=== PATIENT | female | born 1940 | race Caucasian/White ===

== ENCOUNTER 2018-01-25 15:47 | Observation (INO) ==
--- NOTE | 2018-01-25 16:14 | CT ---
CT brain without contrast Indication: Slurring speech with difficult arousable Comparison: None available Technique: Multiple axial images of the brain were obtained from the skull base to the vertex without administra tion of IV contrast. Findings: Mild generalized cerebral atrophy. No acute intraparenchymal hemorrhage or mass can be identified. No extra-axial fluid collections are seen. No alteration in the attenuation of the brain parenchyma can be identified to suggest acute o r subacute ischemic change. The ventricular system is symmetric and nondilated. The extracranial st ructures are grossly unremarkable. IMPRESSION: 1. No acute intracranial process is identified. Reported By:
--- NOTE | 2018-01-25 17:02 | DR.AMS ---
HPI - Time Seen Time seen: 16:47 - PCP Primary Care Physician: DR. SORIA - Complaint Cheif Complaint Doctors Comments: She noted slurriness of her speech upon awakening this a.m. She cooked and had breakfast. She felt sleepy and went to sleep. A friend called and noted that her speech was off, so therefore she called the pt's daughters who then brought her into the ED. Chief Complaint:: PT'S FAMILY STATES A FRIEND CALLED PT AT 1000 AND STATES THAT SHE WAS VERY SLEEPY, AND WAS SLURING HER WORDS..... PT IS ALERT AND ORIENTED TIMES FOR PT DENIES ANY PAIN ,STEADY GATE AND SHE WAS HAVE GARLED SPEECH , PT IS ABLE TO GIVE A GOOD HX, PT CAN MOVE ALL EXT'S WELL..BR Self Treatment fo Chief Complaint: PT STATES " I JUST GOT UP AND COOKED BREAKFAST AND I GOT SLEEPY AND MY FRIEND MIKY CALLED AND SHE SAID WHATS WRONG AND THEN SHE CALLED MY DAUGHTER ", - Reviewed Nurses Notes Reviewed: Yes - Source History Provided: Patient, Family Member - Mode of Arrival Mode of Arrival: Ambulatory - Timing Onset of Chief Complaint: 01/25/18 PMH - PMH Past Medical History: Yes Past Medical History: Diabetes, Hypertension Past Medical History Comment: DIARRHEA, FOR WEEKS, PT HX AFIB, < HEM, AND PLT Past Surgical History: No - Family History History of Family Medical Conditions: No - Social History Does patient currently use any type of tobacco product: Yes Have you used tobacco products in the last 12 months: Yes Type of Tobacco Use: Cigarettes How many years tobacco product used: 60 Does any household member use tobacco: Yes Alcohol Use: Rarely Do you use any recreational Drugs:: No Lives With: Alone Lives Where: Home - infectious screening In the last 2 months have you had wt loss of >10#?: NO Have you had fever, night sweats or hemotysis?: No Have you traveled outside the country in the last 6 months?: No Isolation: Standard ROS - Review of Systems Constitutional: No Symptoms Reported Eyes: No Symptoms Reported ENTM: No Symptoms Reported Respiratoy: No Symptoms Reported Cardiovascular: No Symptoms Reported Gastrointestinal/Abdominal: No Symptoms Reported Genitourinary: No Symptoms Reported Neurological: Speech Problem Musculoskeletal: No Symptoms Reported Integumentary: No Symptoms Reported Hematologic/Lymphatic: No Symptoms Reported Endocrine: No Symptoms Reported Psychiatric: No Symptoms Reported All Other Systems: Reviewed and Negative PE - General Limitations: Language Barrier General Appearance: Alert - Head Head Exam: Normal Inspection, Other (slight facial assymetry with flatening of the rt. nasolabial fold.) - Eyes Eye exam: Normal Appearance, PERRL, EOMI - ENT ENT Exam: Normal Exam - Neck Neck Exam: Normal Inspection, Full ROM, Trachea Midline - Chest Chest Inspection: Normal Inspection, Symmetric Chest Wall Rise - Respiratory Respiratory Exam: Normal Lung Sounds Bilat - Cardiovascular Cardiovascular Exam: Regular Rate, Normal Rhythm, Normal Heart Sounds, +S1, +S2 - Abdominal Exam Abdominal Exam: Normal Inspection, Normal Bowel Sounds, Soft - Extremities Extremities Exam: Normal Inspection - Back Back Exam: Normal Inspection - Neurological Neurological Exam: Alert, Oriented X3 Patient Oriented To: Person, Place Speech: Other (dysathria) - Psychological Psychiatric Exam: Normal Affect, Normal Mood - Skin Skin Exam: Warm, Dry, Intact, Normal Color - Vitals Vital Signs: Temp Pulse Pulse Resp BP BP Pulse Ox 01/25/18 18:20 71 17 137/63 100 01/25/18 15:49 98.8 F 74 20 127/60 99 ROR - Labs Reviewed Result Diagrams: 01/25/18 17:11 01/25/18 17:11 - Labs Reviewed Laboratory: WBC 6.4 X10^3/uL (3.6-10.0) 01/25/18 17:11 RBC 2.97 X10^6/uL (3.5-5.4) L 01/25/18 17:11 Hgb 10.8 g/dL (12.0-16.0) L 01/25/18 17:11 Hct 31.5 % (36.0-47.0) L 01/25/18 17:11 MCV 106.1 fL (80.0-100.0) H 01/25/18 17:11 MCH 36.2 pg (27.0-34.0) H 01/25/18 17:11 MCHC 34.1 g/dL (33.0-35.0) 01/25/18 17:11 RDW 14.4 % (11.6-16.5) 01/25/18 17:11 Plt Count 113 X10^3/uL (150.0-450.0) L 01/25/18 17:11 Plt Count Comment Adequate (ADEQUATE) 01/25/18 17:11 MPV 7.4 fL (7.4-11.0) 01/25/18 17:11 Neut % (Auto) 57.4 % (42.0-75.0) 01/25/18 17:11 Lymph % (Auto) 35.6 % (21.0-51.0) 01/25/18 17:11 Union % (Auto) 5.5 % (0.0-13.0) 01/25/18 17:11 Eos % (Auto) 0.7 % (0.9-2.9) L 01/25/18 17:11 Baso % (Auto) 0.8 % (0.2-1.0) 01/25/18 17:11 Neut # (Auto) 3.7 x10^3/uL (2.2-4.8) 01/25/18 17:11 Lymph # (Auto) 2.3 X10^3/uL (1.3-2.9) 01/25/18 17:11 Union # (Auto) 0.3 x10^3/uL (0.3-0.8) 01/25/18 17:11 Eos # (Auto) 0.0 x10^3/uL (0.0-0.2) 01/25/18 17:11 Baso # (Auto) 0.1 X10^3/uL (0.0-0.1) 01/25/18 17:11 Absolute Nucleated RBC 0.0 /100WBC 01/25/18 17:11 Plt Morphology Comment Normal (NORMAL) 01/25/18 17:11 RBC Morphology Abnormal (NORMAL) A 01/25/18 17:11 Anisocytosis 1+ A 01/25/18 17:11 Macrocytosis 1+ A 01/25/18 17:11 INR Target Range - 01/25/18 17:11 INR 1.00 (0.8-1.3) 01/25/18 17:11 Sodium 142 mmol/L (136-145) 01/25/18 17:11 Corrected Sodium TNP 01/25/18 17:11 Potassium 3.6 mmol/L (3.5-5.1) 01/25/18 17:11 Chloride 109 mmol/L (98-107) H 01/25/18 17:11 Carbon Dioxide 19.7 mmol/L (21-32) L 01/25/18 17:11 BUN 18 mg/dL (7-18) 01/25/18 17:11 Creatinine 1.37 mg/dL (0.55-1.02) H 01/25/18 17:11 Est GFR (MDRD) Af Amer 48 (>60) L 01/25/18 17:11 Est GFR (MDRD) Non-Af 40 (>60) L 01/25/18 17:11 Glucose 110 mg/dL (65-99) H 01/25/18 17:11 Calcium 9.6 mg/dL (8.5-10.1) 01/25/18 17:11 Corrected Calcium TNP 01/25/18 17:11 Total Bilirubin 0.20 mg/dL (0.2-1.0) 01/25/18 17:11 AST 16 Units/L (15-37) 01/25/18 17:11 ALT 17 Units/L (12-78) 01/25/18 17:11 Alkaline Phosphatase 84 Units/L (46-116) 01/25/18 17:11 Total Protein 7.8 g/dL (6.4-8.2) 01/25/18 17:11 Albumin 3.9 g/dL (3.4-5.0) 01/25/18 17:11 Globulin 3.9 g/dL (2.5-4.5) 01/25/18 17:11 Albumin/Globulin Ratio 1.0 Ratio (1.1-2.1) L 01/25/18 17:11 - Diagnosis Discharge Problem: TIA (transient ischemic attack), HTN (hypertension), Diabetes, A-fib - Discharge Plan Disposition: ADMITTED INPATIENT Condition: Stable - Follow ups/Referrals Follow ups/Referrals: NFD,None [Primary Care Provider] - 3 days - Instructions
[2018-01-25 17:29] LABS: BASOPHILS # (AUTO) 0.1 X10^3/uL (0.0-0.1); BASOPHILS % (AUTO) 0.8 % (0.2-1.0); EOSINOPHILS % (AUTO) 0.7 % (0.9-2.9); HEMATOCRIT 31.5 % (36.0-47.0); HEMOGLOBIN 10.8 g/dL (12.0-16.0); LYMPHOCYTES # (AUTO) 2.3 X10^3/uL (1.3-2.9); LYMPHOCYTES % (AUTO) 35.6 % (21.0-51.0); MEAN CORPUSCULAR HEMOGLOBIN 36.2 pg (27.0-34.0); MEAN CORPUSCULAR HGB CONC 34.1 g/dL (33.0-35.0); MEAN CORPUSCULAR VOLUME 106.1 fL (80.0-100.0); MEAN PLATELET VOLUME 7.4 fL (7.4-11.0); MONOCYTES # (AUTO) 0.3 x10^3/uL (0.3-0.8); MONOCYTES % (AUTO) 5.5 % (0.0-13.0); NEUTROPHILS # (AUTO) 3.7 x10^3/uL (2.2-4.8); NEUTROPHILS % (AUTO) 57.4 % (42.0-75.0); PLATELET COUNT 113 X10^3/uL (150.0-450.0); RED BLOOD COUNT 2.97 X10^6/uL (3.5-5.4); RED CELL DISTRIBUTION WIDTH 14.4 % (11.6-16.5); WHITE BLOOD COUNT 6.4 X10^3/uL (3.6-10.0)
[2018-01-25 17:32] LABS: ALANINE AMINOTRANSFERASE 17 Units/L (12-78); ALBUMIN 3.9 g/dL (3.4-5.0); ALKALINE PHOSPHATASE 84 Units/L (46-116); ASPARTATE AMINO TRANSFERASE 16 Units/L (15-37); BLOOD UREA NITROGEN 18 mg/dL (7-18); CALCIUM 9.6 mg/dL (8.5-10.1); CARBON DIOXIDE 19.7 mmol/L (21-32); CHLORIDE 109 mmol/L (98-107); CREATININE 1.37 mg/dL (0.55-1.02); SODIUM 142 mmol/L (136-145); TOTAL PROTEIN 7.8 g/dL (6.4-8.2); eGFR NON BLACK RACES 40 (>60)
[2018-01-25 17:49] LABS: PLATELET MORPHOLOGY COMMENT NORMAL (NORMAL)
[2018-01-25 17:50] LABS: ANISOCYTOSIS 1+
--- NOTE | 2018-01-25 17:50 | RAD ---
AP chest Indication: Slurred speech Comparison: None available Findings: The trachea is midline. Heart size is mildly enlarged. Thoracic aorta demonstrates shameka l caliber. There is no focal airspace opacity, pleural effusion or pneumothorax. No acute osseous a bnormality. Degenerative changes within both AC joints. Impression: Cardiomegaly without acute airspace disease or CHF. Reported By:
[2018-01-25 19:10] LABS: CKMB % 3.6 % (<4); CREATINE KINASE MB 1.3 ng/mL (0-4.0); TROPONIN I 0.18 ng/mL (0-1.5)
[2018-01-25] MEDS ORDERED: HumuLIN R SUBCUT PRN (20:28)
[2018-01-25 23:50] LABS: CKMB % 3.9 % (<4); CREATINE KINASE MB 1.1 ng/mL (0-4.0); TROPONIN I 0.13 ng/mL (0-1.5)
[2018-01-26 05:18] LABS: BASOPHILS # (AUTO) 0.1 X10^3/uL (0.0-0.1); EOSINOPHILS % (AUTO) 0.5 % (0.9-2.9); HEMATOCRIT 28.9 % (36.0-47.0); HEMOGLOBIN 10.1 g/dL (12.0-16.0); LYMPHOCYTES # (AUTO) 2.2 X10^3/uL (1.3-2.9); LYMPHOCYTES % (AUTO) 38.7 % (21.0-51.0); MEAN CORPUSCULAR HEMOGLOBIN 36.7 pg (27.0-34.0); MEAN CORPUSCULAR HGB CONC 35.1 g/dL (33.0-35.0); MEAN CORPUSCULAR VOLUME 104.5 fL (80.0-100.0); MEAN PLATELET VOLUME 7.1 fL (7.4-11.0); MONOCYTES # (AUTO) 0.3 x10^3/uL (0.3-0.8); MONOCYTES % (AUTO) 6.2 % (0.0-13.0); NEUTROPHILS % (AUTO) 53.6 % (42.0-75.0); PLATELET COUNT 94 X10^3/uL (150.0-450.0); RED BLOOD COUNT 2.77 X10^6/uL (3.5-5.4); RED CELL DISTRIBUTION WIDTH 14.1 % (11.6-16.5); WHITE BLOOD COUNT 5.6 X10^3/uL (3.6-10.0)
[2018-01-26 05:23] LABS: ALANINE AMINOTRANSFERASE 16 Units/L (12-78); ALBUMIN 3.4 g/dL (3.4-5.0); ALKALINE PHOSPHATASE 68 Units/L (46-116); ASPARTATE AMINO TRANSFERASE 19 Units/L (15-37); BLOOD UREA NITROGEN 15 mg/dL (7-18); CALCIUM 9.4 mg/dL (8.5-10.1); CARBON DIOXIDE 21.4 mmol/L (21-32); CHLORIDE 113 mmol/L (98-107); SODIUM 143 mmol/L (136-145); TOTAL PROTEIN 6.8 g/dL (6.4-8.2); eGFR NON BLACK RACES 46 (>60)
[2018-01-26 05:31] LABS: CKMB % 4.2 % (<4); CREATINE KINASE MB 1.1 ng/mL (0-4.0); TROPONIN I 0.12 ng/mL (0-1.5)
--- NOTE | 2018-01-26 11:17 | CT ---
HEAD CT WITHOUT IV CONTRAST CLINICAL INDICATION: Weakness and slurred speech TECHNIQUE: Axial CT images from skull base to vertex without IV contrast.Dose reduction techniques in cluding Automated Exposure Control (AEC) and adjustment of mA and kV were utlized. COMPARISON: CT 1 day prior for the same indication FINDINGS: There is no abnormal brain parenchymal density. There is no evidence of acute infarction, intracrani al hemorrhage, mass or mass effect, or abnormal extra-axial collection. The density of the larger dur al venous sinuses is normal. The ventricles are normal in size, shape and position. The skull base an d calvarium are normal. The included paranasal sinuses and mastoid air cells are predominantly clear. IMPRESSION: 1. No acute intracranial abnormality. Reason for short interval repeat is unclear. If new symptoms co uld be provided , more pertinent negatives could be dictated. If there is definite, focal, acute neur ologic deficit, MRI with diffusion-weighted imaging would be more sensitive for detection of acute st roke. Reported By:
[2018-01-26] MEDS ORDERED: PERIACTIN TAB 4 MG PO PRN (12:13)
[2018-01-26] MEDS ORDERED: RESTORIL CAP 30 MG PO PRN (12:22)
[2018-01-26] MEDS ORDERED: ZOLOFT PO ONE (12:56)
[2018-01-26] MEDS: JANUVIA PO SCH (13:17)
[2018-01-26] MEDS: MEGACE ORAL SUSP 400 MG/10 ML PO SCH (13:17)
[2018-01-26] MEDS: WELCHOL PO SCH ×2 (13:17→22:00)
[2018-01-26] MEDS: PAXIL PO SCH (13:17)
[2018-01-26] MEDS: ZOLOFT PO SCH (13:18)
[2018-01-26 15:45] VITALS: BMI 17.7
[2018-01-26] MEDS ORDERED: SNACK - Diabetic Appropriate PO SCH ×2 (20:00)
[2018-01-26] MEDS ORDERED: ZOCOR TAB 20 MG PO SCH (21:00)
[2018-01-26] MEDS ORDERED: ARICEPT TAB 5 MG PO SCH (21:00)
[2018-01-26] MEDS ORDERED: COZAAR PO SCH (21:00)
[2018-01-27 05:57] LABS: BASOPHILS % (AUTO) 0.7 % (0.2-1.0); EOSINOPHILS % (AUTO) 0.3 % (0.9-2.9); HEMATOCRIT 29.9 % (36.0-47.0); HEMOGLOBIN 10.4 g/dL (12.0-16.0); LYMPHOCYTES # (AUTO) 1.8 X10^3/uL (1.3-2.9); LYMPHOCYTES % (AUTO) 29.3 % (21.0-51.0); MEAN CORPUSCULAR HEMOGLOBIN 36.9 pg (27.0-34.0); MEAN CORPUSCULAR HGB CONC 34.9 g/dL (33.0-35.0); MEAN CORPUSCULAR VOLUME 105.9 fL (80.0-100.0); MEAN PLATELET VOLUME 7.1 fL (7.4-11.0); MONOCYTES # (AUTO) 0.4 x10^3/uL (0.3-0.8); MONOCYTES % (AUTO) 5.7 % (0.0-13.0); PLATELET COUNT 100 X10^3/uL (150.0-450.0); RED BLOOD COUNT 2.82 X10^6/uL (3.5-5.4); RED CELL DISTRIBUTION WIDTH 14.3 % (11.6-16.5); WHITE BLOOD COUNT 6.2 X10^3/uL (3.6-10.0)
[2018-01-27] MEDS: WELCHOL PO SCH (06:01)
[2018-01-27 06:14] LABS: ANISOCYTOSIS 1+; PLATELET MORPHOLOGY COMMENT NORMAL (NORMAL)
[2018-01-27 06:25] LABS: ALANINE AMINOTRANSFERASE 19 Units/L (12-78); ALBUMIN 3.5 g/dL (3.4-5.0); ALKALINE PHOSPHATASE 73 Units/L (46-116); ASPARTATE AMINO TRANSFERASE 20 Units/L (15-37); BLOOD UREA NITROGEN 22 mg/dL (7-18); CALCIUM 9.4 mg/dL (8.5-10.1); CARBON DIOXIDE 20.3 mmol/L (21-32); CHLORIDE 111 mmol/L (98-107); COR NA(FOR HYPERGLY) 142 mmol/L (136-145); CREATININE 1.36 mg/dL (0.55-1.02); SODIUM 141 mmol/L (136-145); TOTAL PROTEIN 7.1 g/dL (6.4-8.2); eGFR NON BLACK RACES 40 (>60)
[2018-01-27] MEDS ORDERED: JANUVIA PO ONE (08:34)
[2018-01-27] MEDS ORDERED: ZOLOFT PO ONE (08:35)
[2018-01-27] MEDS ORDERED: PAXIL ONE (08:35)
[2018-01-27] MEDS ORDERED: MEGACE ORAL SUSP 400 MG/10 ML ONE (08:35)
[2018-01-27] MEDS ORDERED: TAB-A-VITE PO ONE (08:35)
[2018-01-27] MEDS ORDERED: TAB-A-VITE PO SCH (09:00)
[2018-01-27] MEDS ORDERED: NS 1000 ML 1,000 ML IV ONE (09:13)
[2018-01-27] MEDS: JANUVIA PO SCH (09:22)
[2018-01-27] MEDS: PAXIL PO SCH (09:23)
[2018-01-27] MEDS: MEGACE ORAL SUSP 400 MG/10 ML PO SCH (09:23)
[2018-01-27] MEDS: ZOLOFT PO SCH (09:23)
[2018-01-27 12:02] VITALS: BP 109/47
--- NOTE | 2018-01-27 13:42 | DR.H&P ---
H&P - History & Physical for Day of: H&P Date: 01/25/18 - Chief Complaint Chief Complaint: SLURRED SPEECH, DROWSINESS - History of Present Illness History of Present Illness: IS A 77 YEAR OLD WHITE FEMALE WHO PRESENTED TO THE EMERGENCY ROOM WITH FAMILY REPORTING THAT PATIENT HAS HAD DROWSINESS AND SLURRED SPEECH. ON ARRIVAL TO THE ER, PATIENT IS NOTED WITH GENERALIZED WEAKNESS AND DELAYED SPEECH. SHE DENIES UNSTEADY GAIT OR PAIN. FAMILY REPORTS THAT SYMPTOMS STARTED THIS MORNING. PATIENT STATED THAT SHE HAS FELT WEAK FOR A FEW MONTHS, BUT DROWSINESS AND SLURRED SPEECH STARTED TODAY. ON ARRIVAL, VITALS ERE 98.8-74-20-99%-127/60. LABS WERE OBTAINED. ABNORMAL LAB VALUES INCLUDE THE FOLLOWING: RBC 2.97, HGB 10.8, HCT 31.5, PLT COUNT 113, CHLORIDE 109, CARBON DIOXIDE 19.7, CREATININE 1.37, GLUCOSE 110. A BRAIN CT WAS OBTAINED AND REVEALED NO ACUTE INTRACRANIAL PROCESS IDENTIFIED. PATIENT WAS ADMITTED FOR FURTHER EVALUATION AND TREATMENT. WE WILL FOLLOW UP WITH AM LABS AND CONTINUE TO MONITOR PATIENT. - Past Medical History Past Medical History: Depression, Diabetes, Dyslipidemia, Hypertension Additional Medical History: IBS, - Past Surgical History Surgical History: Hysterectomy - Family History Family Medical History: Cancer - Social History Does patient currently use any type of tobacco product: Yes Have you used tobacco products in the last 12 months: Yes Type of Tobacco Use: Cigarettes How many years tobacco product used: 60 Does any household member use tobacco: Yes Alcohol Use: None Drug Use: None - Medications Home Medications: penicillin G Allergy (Verified 01/25/18 15:49) naproxen [From Aleve] Adverse Reaction (Verified 01/25/18 15:49) CONTINUE taking the following medications colesevelam [WelChol] 1 tab PO TID 01/25/18 [History] cyproheptadine 1 tab PO TID 01/25/18 [History] donepezil 1 tab PO DAILY 01/25/18 [History] losartan 1 tab PO HS 01/25/18 [History] megestrol 40 mg/ml PO DAILY 01/25/18 [History] paroxetine HCl 1 tab PO DAILY 01/25/18 [History] simvastatin 1 tab PO DAILY 01/25/18 [History] sitagliptin [Januvia] 1 tab PO DAILY 01/25/18 [History] temazepam 1 cap PO DAILY 01/25/18 [History] - Review of Systems Constitutional: Weakness, Malaise, Other (FATIGUE) Eyes: No Symptoms Reported ENT: No Symptoms Reported Respiratory: No Symptoms Reported Cardiovascular: No Symptoms Reported Gastrointestinal: Diarrhea Genitourinary: No Symptoms Reported Musculoskeletal: No Symptoms Reported Skin: No Symptoms Reported Neurological: Weakness, Change in Speech, Other (DROWSINESS ) - Physical Exam Vital Signs: Temperature 97.5 F Pulse Rate [Left Brachial] 68 Pulse Rate 74 Respiratory Rate 20 Blood Pressure [Left Arm] 109/47 Blood Pressure 127/60 O2 Sat by Pulse Oximetry 99 Oriented: Normal Ear: Normal Nose: Normal Throat: Normal Respiratory: Clear Throughout Cardiovascular: Normal : Normal Auscultation: Bowel Sounds: Normal Palpation: Normal Tenderness: Normal Skin: Normal Musculoskeletal: Normal Psychiatric: Normal Mood Description: Calm Affect: Normal Speech Pattern: Delayed - Allergies Allergies/Adverse Reactions: Allergies Allergy/AdvReac Type Severity Reaction Status Date / Time penicillin G Allergy Verified 01/25/18 15:49 naproxen [From Aleve] AdvReac Verified 01/25/18 15:49
--- NOTE | 2018-02-19 01:25 | DR.CARTERD ---
- Discharge Summary for: Discharge Summary for Date of:: 01/27/18 - Admission Date Date of Admission: 01/25/18 - Admission Diagnoses Admission Diagnosis: 1. Slurred speech 2. Lethargy - Discharge Date Discharge Date: 01/27/18 - Discharge Diagnoses Discharge Diagnosis: 1. TIA 2. Slurred speech 3. Lethargy - Hospital Course Hospital Course: Day one, Ms. Kramer presented to the [facility] for evaluation. Family stated a friend called the patient at 10:00 and said she was slurring her words and was very sleepy. Patient was alert and oriented and denied any pain. It was noted that she was having garbled speech but had a steady gait and could move all extremities well. Patient stated, I got up and cooked breakfast and I got sleepy and my friend Neva called and she said what s wrong and then she called my daughter. A brain CT revealed: No acute intracranial process identified. Chest x-ray showed cardiomegaly without acute airspace disease or CHF. Patient was given a one-time bolus of NS 1000 ML IV @ 999 MLS/HR. Medical HX: Cataracts, Cardiac Arrhythmia, HTN, A-Fibb, Sleep Apnea , Gastrointestinal Ulcer, Diarrhea, UTI, Arthritis, Back Pain, DM II, Anemia, Decreased Platelets, Skin Cancer, Hysterectomy, Cataract Surgery, Retinal Surgery. Patient was admitted to the hospital under observation status for further evaluation to rule out CVA. Abnormal Labs: RBC 2.97, HGB 10.8, HCT 31.5 , MCV 106.1, MCH 36.2, PLT Count 113, Chloride 109, Carbon Dioxide 19.7, Creatinine 1.37, Glucose 110, A/G ratio 1.0. Day two, a repeat brain CT was taken and reported: No acute intracranial abnormality. Patient continued with slightly slurred speech; however, she was alert and oriented with no lethargy noted. We continued to monitor patient. Abnormal Labs: RBC 2.77, HGB 10.1, HCT 28.9, MCV 104.5, MCH 36.7, MCHC 35.1, PLT COUNT 94, CHLORIDE 113, Creatinine 1.20. Day three, patient was sitting up in bed upon rounds. She was alert and oriented. She was noted with no slurred speech. No distress was noted. Vital signs stable. Labs wnl. We planned for discharge. Instructions for medications and follow up were discussed with patient and family, both voiced understanding. Patient discharged home in stable condition with family. - Discharge Medications Discharge Medications: Home Medication List colesevelam [WelChol] 1 tab PO TID 01/25/18 [History] cyproheptadine 1 tab PO TID 01/25/18 [History] donepezil 1 tab PO DAILY 01/25/18 [History] losartan 1 tab PO HS 01/25/18 [History] megestrol 40 mg/ml PO DAILY 01/25/18 [History] paroxetine HCl 1 tab PO DAILY 01/25/18 [History] simvastatin 1 tab PO DAILY 01/25/18 [History] sitagliptin [Januvia] 1 tab PO DAILY 01/25/18 [History] temazepam 1 cap PO DAILY 01/25/18 [History] Prescriptions: - Discharge Disposition Discharge Disposition: Patient is to follow up in our office in one week.
== END 2018-01-27 12:54 | disposition home or self-care (01) ==
LOC: MED/SURG 16:05 → ER 16:05 → MED/SURG 19:40
PROVIDERS: ADMIT Internal Medicine; ATTEND Internal Medicine
DX: R94.4 Abnormal results of kidney function studies; I48.91 Unspecified atrial fibrillation; Z79.899 Other long term (current) drug therapy; D64.89 Other specified anemias; I10 Essential (primary) hypertension; E11.65 Type 2 diabetes mellitus with hyperglycemia; R47.81 Slurred speech; E78.2 Mixed hyperlipidemia; G45.8 Other transient cerebral ischemic attacks and related syndromes
CPT/HCPCS: 36415; 70450; 71010; 71045; 80053; 82550; 82553; 84484; 85025; 85610; 96365; 99283; 99284; A4222; G0378; J7030

== ENCOUNTER 2018-05-04 11:33 | Inpatient (IN) ==
[2018-05-04] MEDS ORDERED: NS 1000 ML 1,000 ML IV ONE (12:18)
[2018-05-04] MEDS ORDERED: NS 1000 ML 1,000 ML ONE ×2 (12:25→14:11)
[2018-05-04 12:58] LABS: BASOPHILS # (AUTO) 0.1 X10^3/uL (0.0-0.1); BASOPHILS % (AUTO) 1.3 % (0.2-1.0); EOSINOPHILS % (AUTO) 0.1 % (0.9-2.9); HEMATOCRIT 28.9 % (36.0-47.0); HEMOGLOBIN 9.7 g/dL (12.0-16.0); LYMPHOCYTES # (AUTO) 0.5 X10^3/uL (1.3-2.9); MEAN CORPUSCULAR HEMOGLOBIN 36.4 pg (27.0-34.0); MEAN CORPUSCULAR HGB CONC 33.7 g/dL (33.0-35.0); MEAN PLATELET VOLUME 6.8 fL (7.4-11.0); MONOCYTES # (AUTO) 0.2 x10^3/uL (0.3-0.8); MONOCYTES % (AUTO) 4.1 % (0.0-13.0); NEUTROPHILS # (AUTO) 3.5 x10^3/uL (2.2-4.8); NEUTROPHILS % (AUTO) 83.5 % (42.0-75.0); PLATELET COUNT 84 X10^3/uL (150.0-450.0); RED BLOOD COUNT 2.67 X10^6/uL (3.5-5.4); WHITE BLOOD COUNT 4.2 X10^3/uL (3.6-10.0)
[2018-05-04 13:00] LABS: PLATELET MORPHOLOGY COMMENT NORMAL (NORMAL)
[2018-05-04 13:15] LABS: BLOOD UREA NITROGEN 21 mg/dL (7-18); CALCIUM 10.2 mg/dL (8.5-10.1); CARBON DIOXIDE 17.3 mmol/L (21-32); CHLORIDE 104 mmol/L (98-107); COR NA(FOR HYPERGLY) 141 mmol/L (136-145); CREATININE 1.69 mg/dL (0.55-1.02); SODIUM 137 mmol/L (136-145); TROPONIN I 0.15 ng/mL (0-1.5); eGFR NON BLACK RACES 31 (>60)
[2018-05-04 13:20] LABS: ALANINE AMINOTRANSFERASE 26 Units/L (12-78); ALBUMIN 3.7 g/dL (3.4-5.0); ALKALINE PHOSPHATASE 110 Units/L (46-116); ASPARTATE AMINO TRANSFERASE 29 Units/L (15-37); CREATINE KINASE 124 Units/L (26-192); CREATINE KINASE MB 3.7 ng/mL (0-4.0); TOTAL PROTEIN 7.7 g/dL (6.4-8.2); TSH (3RD GENERATION) 2.131 uIU/mL (0.358-3.74)
[2018-05-04] MEDS ORDERED: MORPHINE SULFATE INJ 2 MG INJ IVP ONE (13:36)
[2018-05-04] MEDS ORDERED: MORPHINE SULFATE INJ 2 MG INJ ONE (14:02)
--- NOTE | 2018-05-04 14:06 | RAD ---
STUDY: CHEST, ONE VIEW History: Right upper quadrant pain with nausea and vomiting. Possible stroke-like symptoms. Comparison: January 25, 2018. Findings: The trachea is midline. There is some prominence of the central bronchopulmonary markings in both jayce gs. The lungs are clear of consolidation, significant infiltrate, effusion, or pneumothorax. The card iac silhouette, mediastinum and osseous structures are unremarkable. IMPRESSION: 1. COPD. 2. No acute pulmonary abnormality. Reported By:
--- NOTE | 2018-05-04 14:13 | CT ---
HISTORY: Right-sided abdominal pain. Study: CT abdomen and pelvis without contrast. Comparison: None. Technique: Multiple axial images of the abdomen and pelvis were obtained from the lung bases to the p ubic symphysis without the administration of IV contrast. Findings: There are patchy opacities in both lung bases compatible with pneumonia and/or aspiration. There are coronary artery calcifications. There are multiple hepatic lesions throughout the liver wi th confluent hypodense masses within the inferior right hepatic lobe measuring up to 8 cm in diameter . There is no intra or extrahepatic biliary ductal dilatation. The pancreas, spleen and adrenal gland s are unremarkable noncontrast CT appearance. There is a nonspecific 7 mm hyperdensity along the richard al aspect of the inferior pole of the left kidney possibly reflecting a hemorrhagic cyst. Simple appe aring right renal cysts are suspected as well. There is no hydronephrosis or nephrolithiasis. The marbella endix is normal. The colon is incompletely distended and not optimally evaluated. There is no small b owel dilatation. There is no intraperitoneal free air or free fluid. The urinary bladder is well dist ended and grossly unremarkable. The uterus is surgically absent. There is atherosclerotic disease of the abdominal aorta and branch vessels. There is multilevel degenerative disc disease and mild levosc oliosis of the lumbar spine. IMPRESSION: Bibasilar pneumonia and/or aspiration which should be correlated for clinically. Incompletely characterized hepatic hypodensities concerning for malignancy. CT with IV and oral contr ast is suggested for further evaluation. Incidental findings as above. Reported By:
[2018-05-04] MEDS: NS 1000 ML 1,000 ML IV SCH ×2 (14:29→22:33)
[2018-05-04 14:39] LABS: CALCIUM 9.2 mg/dL (8.5-10.1); CARBON DIOXIDE 19.1 mmol/L (21-32); CREATININE 1.36 mg/dL (0.55-1.02)
[2018-05-04] MEDS ORDERED: LEVAQUIN PREMIX IV 750 MG 750 MG/150 ML BAG IV ONE ×2 (16:17→16:19)
[2018-05-04 17:42] VITALS: BMI 18.2
[2018-05-04] MEDS: ULTRAM PO PRN (21:02)
[2018-05-04] MEDS: DUONEB 0.5 MG/3 MG NEB SCH (21:23)
[2018-05-04 22:35] LABS: BILIRUBIN,URINE NEGATIVE (NEGATIVE); BLOOD/HEMOGLOBIN,URINE 1+ (NEGATIVE); GLUCOSE, URINE NEGATIVE (NEGATIVE); KETONES,URINE 1+ (NEGATIVE); LEUKOCYTE ESTERASE ,URINE 1+ (NEGATIVE); NITRITES,URINE NEGATIVE (NEGATIVE); PROTEIN,URINE 2+ (NEGATIVE); UROBILINOGEN,URINE NORMAL (NORMAL)
[2018-05-04 22:36] LABS: APPEARANCE,URINE HAZY (CLEAR); COLOR,URINE YELLOW (YELLOW)
[2018-05-04 22:41] LABS: BACTERIA,URINE NEGATIVE /HPF (NEGATIVE); MUCUS,URINE FEW /HPF (NEGATIVE); RBC,URINE 0-2 /HPF (NONE SEEN); SQUAMOUS EPITHELIAL CELL,UR MODERATE /HPF (NEGATIVE)
[2018-05-04] MEDS ORDERED: HumuLIN R SUBCUT PRN (23:45)
[2018-05-05] MEDS: DUONEB 0.5 MG/3 MG NEB SCH ×5 (01:23→16:06)
[2018-05-05] MEDS: NS 1000 ML 1,000 ML IV SCH ×4 (05:46→23:30)
[2018-05-05] MEDS ORDERED: NS 1000 ML 1,000 ML IV ONE (11:47)
[2018-05-05] MEDS ORDERED: MEGESTROL PO SCH (12:00)
[2018-05-05] MEDS ORDERED: PATIENT'S HOME MEDICATION (Cholecalciferol (Vitamin D3) [Vitamin D3] 1 CAP) PO SCH (12:00)
[2018-05-05] MEDS ORDERED: ZOLOFT PO ONE (13:05)
[2018-05-05] MEDS: XARELTO PO SCH (13:08)
[2018-05-05] MEDS: PriLOSEC PO SCH (13:08)
[2018-05-05] MEDS: VITAMIN D3 PO SCH (13:08)
[2018-05-05] MEDS: WELCHOL PO SCH ×3 (13:08→22:21)
[2018-05-05] MEDS: CYCLOSPORINE OP SCH (13:09)
[2018-05-05] MEDS: ZOLOFT PO SCH (13:09)
[2018-05-05] MEDS: VITAMIN C PO SCH ×2 (13:09→20:36)
[2018-05-05] MEDS: ZINC PO SCH ×2 (13:14→13:18)
--- NOTE | 2018-05-05 13:28 | CT ---
HISTORY: Weakness, fall Study: CT brain without contrast Comparison: 01/26/2018 Technique: Multiple axial images of the brain were obtained from the skull base to the vertex without administra tion of IV contrast. Findings: No acute intraparenchymal hemorrhage or mass can be identified. No extra-axial fluid collections are seen. No alteration in the attenuation of the brain parenchyma can be identified to suggest acute o r subacute ischemic change. The ventricular system is symmetric and nondilated. There is chronic pe riventricular white matter disease observed and age-appropriate generalized atrophy. IMPRESSION: 1. No acute intracranial process can be identified. 2. Chronic periventricular white matter disease likely on the basis of small vessel ischemic change. 3. Age-appropriate atrophic changes are seen. Reported By:
[2018-05-05] MEDS: SNACK - Diabetic Appropriate PO SCH (20:23)
[2018-05-05] MEDS: RESTORIL CAP 30 MG PO PRN (20:39)
[2018-05-06 05:06] LABS: BASOPHILS % (AUTO) 0.2 % (0.2-1.0); EOSINOPHILS % (AUTO) 0.3 % (0.9-2.9); HEMATOCRIT 22.3 % (36.0-47.0); HEMOGLOBIN 7.7 g/dL (12.0-16.0); LYMPHOCYTES # (AUTO) 1.3 X10^3/uL (1.3-2.9); LYMPHOCYTES % (AUTO) 21.5 % (21.0-51.0); MEAN CORPUSCULAR HEMOGLOBIN 36.6 pg (27.0-34.0); MEAN CORPUSCULAR HGB CONC 34.6 g/dL (33.0-35.0); MEAN CORPUSCULAR VOLUME 105.8 fL (80.0-100.0); MEAN PLATELET VOLUME 7.7 fL (7.4-11.0); MONOCYTES # (AUTO) 0.3 x10^3/uL (0.3-0.8); MONOCYTES % (AUTO) 5.5 % (0.0-13.0); NEUTROPHILS # (AUTO) 4.5 x10^3/uL (2.2-4.8); NEUTROPHILS % (AUTO) 72.5 % (42.0-75.0); PLATELET COUNT 68 X10^3/uL (150.0-450.0); RED BLOOD COUNT 2.11 X10^6/uL (3.5-5.4); WHITE BLOOD COUNT 6.2 X10^3/uL (3.6-10.0)
[2018-05-06 05:16] LABS: ALBUMIN 2.4 g/dL (3.4-5.0); CALCIUM 8.2 mg/dL (8.5-10.1); CARBON DIOXIDE 17.2 mmol/L (21-32); COR CA(FOR HYPOALB) 9.5 mg/dL (8.5-10.1); CREATININE 1.13 mg/dL (0.55-1.02); PLATELET MORPHOLOGY COMMENT NORMAL (NORMAL); TOTAL PROTEIN 5.7 g/dL (6.4-8.2)
[2018-05-06] MEDS ORDERED: POTASSIUM CHL 40 MEQ/NS 0.45% 500 ML IV PRN (05:33)
[2018-05-06] MEDS ORDERED: K-LYTE EFFERVESCENT PO PRN (05:33)
[2018-05-06] MEDS ORDERED: K-RIDER 10 MEQ/NS 100 ML 10 MEQ/100 ML BAG IV PRN (05:33)
[2018-05-06] MEDS ORDERED: POTASSIUM CHL 60 MEQ/NS 0.45% 500 ML IV PRN (05:33)
[2018-05-06] MEDS ORDERED: POTASSIUM CHLORIDE LIQ 20 MEQ UDC PO PRN (05:33)
[2018-05-06] MEDS: WELCHOL PO SCH ×3 (05:52→23:24)
[2018-05-06] MEDS: NS 1000 ML 1,000 ML IV SCH (05:52)
[2018-05-06] MEDS: MAGNESIUM SULFATE 1 GRAM/100 mL PREMIX 1 GM/100 ML BAG IV PRN ×3 (06:15→13:45)
--- NOTE | 2018-05-06 08:34 | ED.ABDFE ---
HPI Time Seen Time Seen by Provider: 05/04/18 12:18 PCP Primary Care Physician: Dr. Kumar Complaint Chief Complaint:: Per EMS family called EMS for stroke like symptoms which were not noticed upon arrival. Upon EMS arrival pt just had c/o RUQ pain with c/o nausea and vomiting. Pt is currently alert and oriented x 3 with currently c/o RUQ pain rated 5/10. Pt has vomitied x 1 time today Source History Provided: Patient Mode of arrival Mode of Arrival: Ambulatory Timing Onset of Chief Complaint: 05/04/18 PMH PMH Past Medical History: Yes Past Medical History: Arthritis, Diabetes, Dyslipidemia, Hypertension and Renal Disease Past Medical History Comment: Afib, TIA, thrombocytopenia Past Surgical History: Yes Surgical History: Family History History of Family Medical Conditions: Yes Family Medical History: Cancer Family Medical History Comment: leukemia Social History Does patient currently use any type of tobacco product: No Have you used tobacco products in the last 12 months: No Type of Tobacco Use: None Does any household member use tobacco: No Alcohol Use: None Do you use any recreational Drugs:: No Lives With: Alone Lives Where: Home infectious screening In the last 2 months have you had wt loss of >10#?: NO Have you had fever, night sweats or hemotysis?: No Have you traveled outside the country in the last 6 months?: No Isolation: Standard PE Vital Signs Vitals: Temperature 97.9 F Pulse Rate [Right Brachial] 96 Pulse Rate [Left Radial] 100 Pulse Rate 97 Respiratory Rate 20 Blood Pressure [Right Arm] 122/58 Blood Pressure [Left Arm] 102/46 Blood Pressure 179/75 O2 Sat by Pulse Oximetry 93 General Limitations: No Limitations and Language Barrier General Appearance: Alert, In No Apparent Distress and Anxious Head Head Exam: Normal Inspection, Atraumatic and Normocephalic Eyes Eye exam: Normal Appearance, PERRL, EOMI and Scleral Icterus ENT ENT Exam: Normal Exam, Normal Oropharynx (givgiva erythema and bleeding upper left), Normal External Ear Exam, Mucous Membranes Moist and TM's Normal Bilaterally Neck Neck Exam: Normal Inspection and Full ROM Chest Chest Inspection: Normal Inspection and Symmetric Chest Wall Rise Respiratory Respiratory Exam: Normal Lung Sounds Bilat and Accessory Muscle Use Respiratory Exam: Bilateral: Clear to Auscultation Cardiovascular Cardiovascular Exam: Regular Rate and Normal Rhythm Abdominal Exam Abdominal Exam: Normal Inspection, Normal Bowel Sounds, Hyperactive Bowel Sounds and Hypoactive Bowel Sounds Abdominal Tenderness: RLQ Rectal Rectal Exam: Deferred Back Back Exam: Normal Inspection, Full ROM and (R) CVA Tenderness Extremeties Extremities Exam: Normal Inspection and Full ROM External Exam: Female: Deferred : Speculum Exam (Female): Deferred : Bimanual Exam (female): Deferred Neurologic Neurological Exam: Alert, Oriented X3 and CN II-XII Intact Psychiatric Psychiatric Exam: Anxious Skin Skin Exam: Warm, Dry, Intact, Rash and Pallor COURSE Treatment Treatment: NS, analgesics,antibiotics Consultation Called: 15:10 Consultation Comments: Dr. Kumar agreed to admit for treatment and further evaluation. ROR Labs Reviewed Laboratory Results Reviewed?: Yes Result Diagrams: 05/06/18 04:05 05/06/18 04:05 Laboratory: WBC 6.2 X10^3/uL (3.6-10.0) 05/06/18 04:05 RBC 2.11 X10^6/uL (3.5-5.4) L 05/06/18 04:05 Hgb 7.7 g/dL (12.0-16.0) L D 05/06/18 04:05 Hct 22.3 % (36.0-47.0) L 05/06/18 04:05 MCV 105.8 fL (80.0-100.0) H 05/06/18 04:05 MCH 36.6 pg (27.0-34.0) H 05/06/18 04:05 MCHC 34.6 g/dL (33.0-35.0) 05/06/18 04:05 RDW 15.0 % (11.6-16.5) 05/06/18 04:05 Plt Count 68 X10^3/uL (150.0-450.0) L 05/06/18 04:05 Plt Count Comment Decreased (ADEQUATE) A 05/06/18 04:05 MPV 7.7 fL (7.4-11.0) 05/06/18 04:05 Neut % (Auto) 72.5 % (42.0-75.0) 05/06/18 04:05 Lymph % (Auto) 21.5 % (21.0-51.0) 05/06/18 04:05 Dyer % (Auto) 5.5 % (0.0-13.0) 05/06/18 04:05 Eos % (Auto) 0.3 % (0.9-2.9) L 05/06/18 04:05 Baso % (Auto) 0.2 % (0.2-1.0) 05/06/18 04:05 Neut # (Auto) 4.5 x10^3/uL (2.2-4.8) 05/06/18 04:05 Lymph # (Auto) 1.3 X10^3/uL (1.3-2.9) 05/06/18 04:05 Dyer # (Auto) 0.3 x10^3/uL (0.3-0.8) 05/06/18 04:05 Eos # (Auto) 0.0 x10^3/uL (0.0-0.2) 05/06/18 04:05 Baso # (Auto) 0.0 X10^3/uL (0.0-0.1) 05/06/18 04:05 Absolute Nucleated RBC 0.1 /100WBC 05/06/18 04:05 Plt Morphology Comment Normal (NORMAL) 05/06/18 04:05 RBC Morphology Abnormal (NORMAL) A 05/06/18 04:05 Macrocytosis 1+ A 05/06/18 04:05 Sodium 142 mmol/L (136-145) 05/06/18 04:05 Corrected Sodium 143 mmol/L (136-145) 05/06/18 04:05 Potassium 3.7 mmol/L (3.5-5.1) 05/06/18 04:05 Chloride 114 mmol/L (98-107) H 05/06/18 04:05 Carbon Dioxide 17.2 mmol/L (21-32) L 05/06/18 04:05 BUN 18 mg/dL (7-18) 05/06/18 04:05 Creatinine 1.13 mg/dL (0.55-1.02) H 05/06/18 04:05 Est GFR (MDRD) Af Amer 60 (>60) 05/06/18 04:05 Est GFR (MDRD) Non-Af 49 (>60) L 05/06/18 04:05 Glucose 131 mg/dL (65-99) H 05/06/18 04:05 POC Glucose (mg/dL) 113 mg/dL (65-99) H 05/06/18 05:39 Lactic Acid 2.5 mmol/L (0.4-2.0) H 05/04/18 15:24 Calcium 8.2 mg/dL (8.5-10.1) L 05/06/18 04:05 Corrected Calcium 9.5 mg/dL (8.5-10.1) 05/06/18 04:05 Magnesium 1.3 mg/dL (1.7-2.9) L 05/06/18 04:05 Total Bilirubin 0.30 mg/dL (0.2-1.0) 05/06/18 04:05 AST 28 Units/L (15-37) 05/06/18 04:05 ALT 21 Units/L (12-78) 05/06/18 04:05 Alkaline Phosphatase 77 Units/L (46-116) 05/06/18 04:05 Creatine Kinase 124 Units/L (26-192) 05/04/18 12:50 CK-MB (CK-2) 3.7 ng/mL (0-4.0) 05/04/18 12:50 CK/CKMB % Calc 3.0 % (<4) 05/04/18 12:50 Troponin I 0.15 ng/mL (0-1.5) 05/04/18 12:50 Total Protein 5.7 g/dL (6.4-8.2) L 05/06/18 04:05 Albumin 2.4 g/dL (3.4-5.0) L 05/06/18 04:05 Globulin 3.3 g/dL (2.5-4.5) 05/06/18 04:05 Albumin/Globulin Ratio 0.7 Ratio (1.1-2.1) L 05/06/18 04:05 TSH 3rd Generation 2.131 uIU/mL (0.358-3.74) 05/04/18 12:50 Specimen Type Clean catch urine 05/04/18 22:19 Urine Color Yellow (YELLOW) 05/04/18 22: Urine Appearance Hazy (CLEAR) 05/04/18 22:19 Urine pH 5.0 (5.0 - 8.0) 05/04/18 22:19 Ur Specific Beyer 1.015 (1.000-1.030) 05/04/18 22:19 Urine Protein 2+ (NEGATIVE) 05/04/18 22:19 Urine Glucose (UA) Negative (NEGATIVE) 05/04/18 22: Urine Ketones 1+ (NEGATIVE) 05/04/18 22:19 Urine Occult Blood 1+ (NEGATIVE) 05/04/18 22:19 Urine Nitrite Negative (NEGATIVE) 05/04/18 22: Urine Bilirubin Negative (NEGATIVE) 05/04/18 22: Urine Urobilinogen Normal (NORMAL) 05/04/18 22:19 Ur Leukocyte Esterase 1+ (NEGATIVE) 05/04/18 22:19 Urine RBC 0-2 /HPF (NONE SEEN) 05/04/18 22: Urine WBC 0-2 /HPF (NONE SEEN) 05/04/18 22:19 Ur Squamous Epith Cells Moderate /HPF (NEGATIVE) 05/04/18 22:19 Urine Bacteria Negative /HPF (NEGATIVE) 05/04/18 22: Urine Mucus Few /HPF (NEGATIVE) 05/04/18 22:19 Ur Culture Indicated? No/not indicated 05/04/18 22:19 Other Results Comments: CT abd/pelv w/o:There are patchy opacities in both lung bases compatible with pneumonia and /or aspiration. There are coronary artery calcifications. There are multiple hepatic lesions throughout the liver with confluent hypodense masses within the inferior right hepatic lobe measuring up to 8cm in diameter. There is no intra or extrahepatic biliary ductal dilatation. ... There is a nonspecific 7mm hyperdensity along the mesial aspect of the inferior pole of the left kidney possibly reflecting a hemorrhagic cyst. Simple appearing right renal cysts are suspected as well. There is no hydronephrosis or nephrolithiasis...Impression: Bibasilar pneumoni and/or aspiration which should be correlated for clinically. Incompletely characterized hepatic hypodensities concerning for malignancy. CT with IV and oral contrast is suggestd for further evaluation. XRAY XRAY Findings: Chest: COPD,No acute pulmonary abnormality Diagnosis Discharge Problem: Pneumonia, Lesion of liver
[2018-05-06] MEDS ORDERED: NS 250 ML IV 250 ML IV ONE ×2 (09:20→21:30)
[2018-05-06] MEDS ORDERED: CHLORASEPTIC SPRAY MT PRN (09:28)
[2018-05-06] MEDS ORDERED: ZOFRAN INJ 4 MG VIAL IVP PRN (10:03)
[2018-05-06] MEDS ORDERED: ZOLOFT PO ONE (11:36)
[2018-05-06] MEDS: CYCLOSPORINE OP SCH (11:40)
[2018-05-06] MEDS: VSL#3 PO SCH (11:41)
[2018-05-06] MEDS: XIFAXAN PO SCH ×2 (11:41→20:46)
[2018-05-06] MEDS: TESSALON PERLES PO PRN (11:42)
[2018-05-06] MEDS: PriLOSEC PO SCH (11:42)
[2018-05-06] MEDS: XARELTO PO SCH (11:42)
[2018-05-06] MEDS: VITAMIN C PO SCH ×2 (11:42→20:47)
[2018-05-06] MEDS: ZOLOFT PO SCH (11:43)
[2018-05-06] MEDS: ZINC PO SCH (11:55)
[2018-05-06] MEDS ORDERED: BENADRYL CAP/TAB 25 MG PO ONE (14:15)
--- NOTE | 2018-05-06 15:24 | CT ---
HISTORY: Right upper quadrant pain. Study: CT abdomen and pelvis with contrast Comparison: CT abdomen/pelvis dated May 04, 2018. Technique: Multiple axial images of the abdomen and pelvis were obtained from the lung bases to the pubic symphy sis after the administration of IV contrast. Dose reduction techniques including Automated Exposure Control (AEC) and adjustment of mA and kV were utilized. Findings: Small bilateral pleural effusions with associated compressive atelectasis versus infiltrate. Other sc attered areas of tree-in-bud opacification. Coronary artery calcifications. Too numerous to count rig ht liver lobe masses with peripheral enhancement and areas of necrosis. Some of these are confluent. The largest measures 5.2 x 5.6 x 4.3 cm in greatest dimension. Question of capsular retraction. The l eft liver lobe is otherwise unremarkable. The portal vein is patent. Question of invasion of the righ t hepatic vein. There is a 2.4 cm hypodense lesion within the posterior right spleen with internal Ho unsfield units of 63. This is indeterminate. 1.1 cm right interpolar hypodense renal lesion with inte rnal Hounsfield units of 36. This had noncontrast Hounsfield units of 16. The left kidney appears nor mal. The pancreas and adrenal glands are unremarkable in their CT appearance. The gallbladder is unre markable in its CT appearance. No significant mesenteric lymphadenopathy or stranding can be observe d. No free fluid or free air is seen within the abdomen. The large and small bowel are unremarkable . The appendix is not well seen. No secondary findings to suggest acute appendicitis. The uterus and ovaries appear surgically absent. Scattered atherosclerotic vascular calcifications without evidence of aneurysmal dilatation. The urinary bladder is grossly unremarkable. Degenerative changes of the s pine. No aggressive osseous lesions. IMPRESSION: Too numerous to count right liver lobe lesions, the largest measuring 5.6 cm in greatest dimension. There are also suspicious lesions within the spleen and right kidney. This is concerning for metastatic disease of unknown primary. Recommend clinical/laboratory correlation and PET-CT for f urther characterization. Reported By:
[2018-05-06] MEDS: VITAMIN D3 PO SCH (15:27)
[2018-05-06] MEDS ORDERED: NS 500 ML IV 500 ML IV ONE (16:17)
[2018-05-06] MEDS: RESTORIL CAP 30 MG PO PRN (20:45)
[2018-05-06] MEDS: SNACK - Diabetic Appropriate PO SCH (20:49)
[2018-05-07] MEDS: NS 1000 ML 1,000 ML IV SCH ×2 (00:30→13:57)
[2018-05-07 06:06] LABS: BASOPHILS % (AUTO) 0.5 % (0.2-1.0); EOSINOPHILS % (AUTO) 0.4 % (0.9-2.9); HEMATOCRIT 35.7 % (36.0-47.0); LYMPHOCYTES # (AUTO) 1.3 X10^3/uL (1.3-2.9); LYMPHOCYTES % (AUTO) 22.3 % (21.0-51.0); MEAN CORPUSCULAR HEMOGLOBIN 30.4 pg (27.0-34.0); MEAN CORPUSCULAR HGB CONC 33.6 g/dL (33.0-35.0); MEAN CORPUSCULAR VOLUME 90.5 fL (80.0-100.0); MEAN PLATELET VOLUME 6.9 fL (7.4-11.0); MONOCYTES # (AUTO) 0.4 x10^3/uL (0.3-0.8); MONOCYTES % (AUTO) 6.7 % (0.0-13.0); NEUTROPHILS # (AUTO) 4.2 x10^3/uL (2.2-4.8); NEUTROPHILS % (AUTO) 70.1 % (42.0-75.0); PLATELET COUNT 62 X10^3/uL (150.0-450.0); RED BLOOD COUNT 3.95 X10^6/uL (3.5-5.4); RED CELL DISTRIBUTION WIDTH 29.6 % (11.6-16.5); WHITE BLOOD COUNT 5.9 X10^3/uL (3.6-10.0)
[2018-05-07] MEDS: WELCHOL PO SCH ×4 (06:08→22:44)
[2018-05-07 06:37] LABS: ALANINE AMINOTRANSFERASE 30 Units/L (12-78); ALBUMIN 2.5 g/dL (3.4-5.0); ALKALINE PHOSPHATASE 124 Units/L (46-116); ASPARTATE AMINO TRANSFERASE 42 Units/L (15-37); BLOOD UREA NITROGEN 13 mg/dL (7-18); CALCIUM 8.1 mg/dL (8.5-10.1); CARBON DIOXIDE 17.2 mmol/L (21-32); CHLORIDE 113 mmol/L (98-107); COR CA(FOR HYPOALB) 9.3 mg/dL (8.5-10.1); CREATININE 1.06 mg/dL (0.55-1.02); MAGNESIUM 2.3 mg/dL (1.7-2.9); SODIUM 142 mmol/L (136-145); TOTAL PROTEIN 6.1 g/dL (6.4-8.2); eGFR NON BLACK RACES 53 (>60)
[2018-05-07 06:44] LABS: ANISOCYTOSIS 3+; PLATELET MORPHOLOGY COMMENT NORMAL (NORMAL)
[2018-05-07] MEDS ORDERED: ZOLOFT PO ONE (08:02)
[2018-05-07] MEDS: VITAMIN D3 PO SCH (08:51)
[2018-05-07] MEDS: XIFAXAN PO SCH ×2 (08:51→20:49)
[2018-05-07] MEDS: PriLOSEC PO SCH (08:52)
[2018-05-07] MEDS: ZOLOFT PO SCH (08:54)
[2018-05-07] MEDS: VSL#3 PO SCH (08:54)
[2018-05-07] MEDS: VITAMIN C PO SCH ×2 (08:54→20:50)
[2018-05-07] MEDS: ZINC PO SCH (08:55)
[2018-05-07] MEDS: CYCLOSPORINE OP SCH (08:55)
[2018-05-07] MEDS: DUONEB 0.5 MG/3 MG NEB PRN ×2 (12:15→16:40)
[2018-05-07] MEDS: ULTRAM PO PRN (14:02)
[2018-05-07] MEDS: RESTORIL CAP 30 MG PO PRN (20:49)
[2018-05-07] MEDS: SNACK - Diabetic Appropriate PO SCH (21:56)
[2018-05-08 06:12] LABS: BASOPHILS % (AUTO) 0.6 % (0.2-1.0); EOSINOPHILS % (AUTO) 0.2 % (0.9-2.9); HEMATOCRIT 34.2 % (36.0-47.0); HEMOGLOBIN 11.7 g/dL (12.0-16.0); LYMPHOCYTES # (AUTO) 1.4 X10^3/uL (1.3-2.9); LYMPHOCYTES % (AUTO) 22.4 % (21.0-51.0); MEAN CORPUSCULAR HGB CONC 34.2 g/dL (33.0-35.0); MEAN CORPUSCULAR VOLUME 90.7 fL (80.0-100.0); MONOCYTES # (AUTO) 0.5 x10^3/uL (0.3-0.8); MONOCYTES % (AUTO) 8.2 % (0.0-13.0); NEUTROPHILS # (AUTO) 4.2 x10^3/uL (2.2-4.8); NEUTROPHILS % (AUTO) 68.6 % (42.0-75.0); PLATELET COUNT 58 X10^3/uL (150.0-450.0); RED BLOOD COUNT 3.77 X10^6/uL (3.5-5.4); RED CELL DISTRIBUTION WIDTH 29.7 % (11.6-16.5); WHITE BLOOD COUNT 6.1 X10^3/uL (3.6-10.0)
[2018-05-08 06:25] LABS: ALBUMIN 2.4 g/dL (3.4-5.0); CALCIUM 8.1 mg/dL (8.5-10.1); COR CA(FOR HYPOALB) 9.4 mg/dL (8.5-10.1); CREATININE 1.18 mg/dL (0.55-1.02)
[2018-05-08 06:50] LABS: ANISOCYTOSIS 3+; PLATELET MORPHOLOGY COMMENT NORMAL (NORMAL)
[2018-05-08] MEDS: WELCHOL PO SCH ×3 (06:56→21:36)
[2018-05-08] MEDS ORDERED: ZOLOFT PO ONE (07:53)
[2018-05-08] MEDS ORDERED: DIPRIVAN VIAL ONE (09:54)
[2018-05-08] MEDS: XIFAXAN PO SCH ×2 (12:27→20:27)
[2018-05-08] MEDS: VSL#3 PO SCH (12:28)
[2018-05-08] MEDS: VITAMIN C PO SCH ×2 (12:28→20:26)
[2018-05-08] MEDS: VITAMIN D3 PO SCH (12:28)
[2018-05-08] MEDS: ZOLOFT PO SCH (12:28)
[2018-05-08] MEDS: PriLOSEC PO SCH (12:28)
[2018-05-08] MEDS: CYCLOSPORINE OP SCH (12:29)
[2018-05-08] MEDS: NS 1000 ML 1,000 ML IV SCH ×4 (13:26→22:12)
[2018-05-08] MEDS: DUONEB 0.5 MG/3 MG NEB PRN (14:43)
--- NOTE | 2018-05-08 15:15 | CT ---
History: Liver mass, concerning for metastatic disease of unknown primary. Procedure: Percutaneous CT-guided biopsy of the liver Technique/Procedure: After the risks and benefits of the procedure were explained to the patient, informed oral and writte n consent was obtained. A preprocedural time-out was performed. The lesion within the right hepatic l obe was demonstrated with CT and a site on the skin overlying the lesion was marked. The skin overlyi ng the region of interest was then prepped and draped in a usual sterile fashion. 8 cc of 1% lidocain e was used to anesthetize the underlying soft tissues. A small dermatotomy was made and a 5 cm 17 gau ge Bard needle was advanced into the lesion under CT guidance. A 10 cm 18 gauge Bard biopsy device wa s then placed through the trocar and 4 separate tissue samples of the lesion were obtained. The biops y samples were placed into formalin and sent to pathology. Postprocedural CT demonstrated no signific ant post biopsy hematoma or other post procedural complication. The patient tolerated the procedure w ell without complaints. No immediate postprocedural complications were evident. The patient left the radiology department in stable condition. Conscious sedation was administered for the procedure. Please see nursing notes for details. Impression: Technically successful CT guided percutaneous biopsy of right hepatic lobe mass. Reported By:
[2018-05-08] MEDS: RESTORIL CAP 30 MG PO PRN (20:27)
[2018-05-08] MEDS: SNACK - Diabetic Appropriate PO SCH (20:29)
[2018-05-08] MEDS: ULTRAM PO PRN (21:45)
[2018-05-08] MEDS: NORCO 5/325 MG TAB PO PRN (23:52)
[2018-05-09] MEDS: WELCHOL PO SCH ×4 (05:30→22:00)
[2018-05-09] MEDS: NORCO 5/325 MG TAB PO PRN (05:31)
[2018-05-09] MEDS: NS 1000 ML 1,000 ML IV SCH ×4 (06:15→23:08)
[2018-05-09 06:21] LABS: BASOPHILS % (AUTO) 0.4 % (0.2-1.0); EOSINOPHILS % (AUTO) 0.7 % (0.9-2.9); HEMATOCRIT 30.4 % (36.0-47.0); HEMOGLOBIN 10.5 g/dL (12.0-16.0); LYMPHOCYTES # (AUTO) 1.5 X10^3/uL (1.3-2.9); LYMPHOCYTES % (AUTO) 26.5 % (21.0-51.0); MEAN CORPUSCULAR HEMOGLOBIN 31.3 pg (27.0-34.0); MEAN CORPUSCULAR HGB CONC 34.5 g/dL (33.0-35.0); MEAN CORPUSCULAR VOLUME 90.7 fL (80.0-100.0); MONOCYTES # (AUTO) 0.5 x10^3/uL (0.3-0.8); MONOCYTES % (AUTO) 8.5 % (0.0-13.0); NEUTROPHILS # (AUTO) 3.6 x10^3/uL (2.2-4.8); NEUTROPHILS % (AUTO) 63.9 % (42.0-75.0); PLATELET COUNT 44 X10^3/uL (150.0-450.0); RED BLOOD COUNT 3.36 X10^6/uL (3.5-5.4); WHITE BLOOD COUNT 5.7 X10^3/uL (3.6-10.0)
[2018-05-09 06:47] LABS: ALANINE AMINOTRANSFERASE 29 Units/L (12-78); ALBUMIN 2.2 g/dL (3.4-5.0); ALKALINE PHOSPHATASE 132 Units/L (46-116); ASPARTATE AMINO TRANSFERASE 36 Units/L (15-37); BLOOD UREA NITROGEN 10 mg/dL (7-18); CARBON DIOXIDE 18.2 mmol/L (21-32); CHLORIDE 114 mmol/L (98-107); COR CA(FOR HYPOALB) 9.4 mg/dL (8.5-10.1); COR NA(FOR HYPERGLY) 143 mmol/L (136-145); CREATININE 0.99 mg/dL (0.55-1.02); SODIUM 143 mmol/L (136-145); TOTAL PROTEIN 5.4 g/dL (6.4-8.2); eGFR NON BLACK RACES 58 (>60)
[2018-05-09 07:00] LABS: PLATELET MORPHOLOGY COMMENT NORMAL (NORMAL)
[2018-05-09 07:01] LABS: ANISOCYTOSIS 3+
[2018-05-09] MEDS ORDERED: ZOLOFT PO ONE (07:44)
[2018-05-09] MEDS: TESSALON PERLES PO PRN (07:59)
[2018-05-09] MEDS: DUONEB 0.5 MG/3 MG NEB PRN (09:26)
[2018-05-09] MEDS: CYCLOSPORINE OP SCH (09:29)
[2018-05-09] MEDS: VITAMIN D3 PO SCH (09:29)
[2018-05-09] MEDS: PriLOSEC PO SCH (09:29)
[2018-05-09] MEDS: VITAMIN C PO SCH ×2 (09:29→20:04)
[2018-05-09] MEDS: ZOLOFT PO SCH (09:30)
[2018-05-09] MEDS: VSL#3 PO SCH (09:30)
[2018-05-09] MEDS: XIFAXAN PO SCH ×2 (09:30→20:04)
[2018-05-09] MEDS: ULTRAM PO PRN (17:27)
[2018-05-09] MEDS: SNACK - Diabetic Appropriate PO SCH (20:51)
[2018-05-09] MEDS: RESTORIL CAP 30 MG PO PRN (21:29)
[2018-05-09] MEDS: MAGNESIUM SULFATE 1 GRAM/100 mL PREMIX 1 GM/100 ML BAG IV PRN ×2 (21:31→22:50)
[2018-05-10] MEDS: WELCHOL PO SCH ×2 (05:34→08:47)
[2018-05-10] MEDS: NS 1000 ML 1,000 ML IV SCH ×2 (05:38→08:47)
[2018-05-10 06:47] LABS: BASOPHILS % (AUTO) 0.6 % (0.2-1.0); EOSINOPHILS % (AUTO) 0.5 % (0.9-2.9); HEMATOCRIT 30.1 % (36.0-47.0); HEMOGLOBIN 10.5 g/dL (12.0-16.0); LYMPHOCYTES # (AUTO) 1.5 X10^3/uL (1.3-2.9); LYMPHOCYTES % (AUTO) 25.8 % (21.0-51.0); MEAN CORPUSCULAR HEMOGLOBIN 31.7 pg (27.0-34.0); MEAN CORPUSCULAR HGB CONC 34.9 g/dL (33.0-35.0); MEAN PLATELET VOLUME 7.4 fL (7.4-11.0); MONOCYTES # (AUTO) 0.4 x10^3/uL (0.3-0.8); MONOCYTES % (AUTO) 7.3 % (0.0-13.0); NEUTROPHILS # (AUTO) 3.8 x10^3/uL (2.2-4.8); NEUTROPHILS % (AUTO) 65.8 % (42.0-75.0); PLATELET COUNT 41 X10^3/uL (150.0-450.0); RED BLOOD COUNT 3.31 X10^6/uL (3.5-5.4); RED CELL DISTRIBUTION WIDTH 28.8 % (11.6-16.5); WHITE BLOOD COUNT 5.8 X10^3/uL (3.6-10.0)
[2018-05-10 06:54] LABS: BLOOD UREA NITROGEN 7 mg/dL (7-18); CALCIUM 8.2 mg/dL (8.5-10.1); CARBON DIOXIDE 17.8 mmol/L (21-32); CHLORIDE 113 mmol/L (98-107); CREATININE 0.98 mg/dL (0.55-1.02); SODIUM 143 mmol/L (136-145); eGFR NON BLACK RACES 58 (>60)
[2018-05-10 06:57] LABS: ANISOCYTOSIS 3+; PLATELET MORPHOLOGY COMMENT NORMAL (NORMAL)
[2018-05-10] MEDS ORDERED: ZOLOFT PO ONE (08:15)
[2018-05-10] MEDS: ULTRAM PO PRN (09:02)
[2018-05-10] MEDS: VSL#3 PO SCH (09:02)
[2018-05-10] MEDS: VITAMIN D3 PO SCH (09:03)
[2018-05-10] MEDS: PriLOSEC PO SCH (09:03)
[2018-05-10] MEDS: VITAMIN C PO SCH (09:03)
[2018-05-10] MEDS: XIFAXAN PO SCH (09:03)
[2018-05-10] MEDS: ZOLOFT PO SCH (09:04)
[2018-05-10] MEDS: CYCLOSPORINE OP SCH (09:05)
[2018-05-10 13:50] VITALS: BP 156/70
== END 2018-05-10 13:00 | disposition swing bed (61) | DRG 435 ==
LOC: ER 11:33 → MED/SURG 16:18
PROVIDERS: ADMIT Obstetrics & Gynecology Obstetrics; ATTEND Obstetrics & Gynecology Obstetrics
DX: J18.8 Other pneumonia, unspecified organism; R11.2 Nausea with vomiting, unspecified; K76.89 Other specified diseases of liver; M13.89 Other specified arthritis, multiple sites; E11.65 Type 2 diabetes mellitus with hyperglycemia; C78.7 Secondary malignant neoplasm of liver and intrahepatic bile duct; R26.89 Other abnormalities of gait and mobility; R19.7 Diarrhea, unspecified; R13.12 Dysphagia, oropharyngeal phase; R10.11 Right upper quadrant pain
CPT/HCPCS: 36415; 36430; 70450; 71010; 71045; 74176; 74177; 77012; 80048; 80053; 81001; 82550; 82553; 82607; 82728; 82746; 83540; 83605; 83735; 84425; 84443; 84466; 84484; 85025; 85610; 85730; 86850; 86900; 86901; 86922; 87040; 88307; 88313; 88341; 88342; 92610; 94640; 94760; 96365; 96367; 96374; 96375; 97110; 97116; 97163; 97165; 97530; 99283; 99284; A4222; P9016; J1956; J2270; J2405; J2704; J3475; J3480; J7030; J7040; J7050; J7620; J8499

== ENCOUNTER 2018-05-10 13:00 | Inpatient (IN) ==
[2018-05-10] MEDS ORDERED: MAGNESIUM SULFATE 1 GRAM/100 mL PREMIX 1 GM/100 ML BAG IV PRN (13:54)
[2018-05-10] MEDS ORDERED: CHLORASEPTIC SPRAY MT PRN (13:54)
[2018-05-10] MEDS ORDERED: K-LYTE EFFERVESCENT PO PRN (13:54)
[2018-05-10] MEDS ORDERED: DUONEB 0.5 MG/3 MG NEB PRN (13:54)
[2018-05-10] MEDS ORDERED: POTASSIUM CHL 40 MEQ/NS 0.45% 500 ML IV PRN (13:54)
[2018-05-10] MEDS ORDERED: TESSALON PERLES PO PRN (13:54)
[2018-05-10] MEDS ORDERED: K-RIDER 10 MEQ/NS 100 ML 10 MEQ/100 ML BAG IV PRN (13:54)
[2018-05-10] MEDS ORDERED: POTASSIUM CHL 60 MEQ/NS 0.45% 500 ML IV PRN (13:54)
[2018-05-10] MEDS ORDERED: POTASSIUM CHLORIDE LIQ 20 MEQ UDC PO PRN (13:54)
[2018-05-10] MEDS: WELCHOL PO SCH ×2 (14:32→21:38)
[2018-05-10] MEDS ORDERED: SNACK - Diabetic Appropriate PO SCH (20:00)
[2018-05-10] MEDS: XIFAXAN PO SCH (21:38)
[2018-05-10] MEDS: SNACK - Diabetic Appropriate PO SCH (21:39)
[2018-05-10] MEDS: VITAMIN C PO SCH (21:39)
[2018-05-10] MEDS: RESTORIL CAP 30 MG PO PRN (21:39)
[2018-05-11] MEDS: WELCHOL PO SCH ×3 (05:55→21:12)
[2018-05-11] MEDS: NORCO 5/325 MG TAB PO PRN ×2 (06:37→18:00)
[2018-05-11 08:03] VITALS: BMI 20.5
[2018-05-11] MEDS ORDERED: ZOLOFT PO ONE (08:40)
[2018-05-11] MEDS: PriLOSEC PO SCH (09:00)
[2018-05-11] MEDS: VITAMIN D3 PO SCH (09:01)
[2018-05-11] MEDS: XIFAXAN PO SCH ×2 (09:01→21:55)
[2018-05-11] MEDS: VSL#3 PO SCH (09:01)
[2018-05-11] MEDS: CYCLOSPORINE OP SCH (09:02)
[2018-05-11] MEDS: VITAMIN C PO SCH ×2 (09:02→21:12)
[2018-05-11] MEDS: ZOLOFT PO SCH (09:02)
[2018-05-11] MEDS: RESTORIL CAP 30 MG PO PRN (21:13)
[2018-05-11] MEDS: SNACK - Diabetic Appropriate PO SCH (21:20)
[2018-05-12] MEDS: WELCHOL PO SCH ×3 (06:04→21:25)
[2018-05-12] MEDS ORDERED: ZOLOFT PO ONE (07:28)
[2018-05-12] MEDS: VITAMIN D3 PO SCH (08:30)
[2018-05-12] MEDS: PriLOSEC PO SCH (08:30)
[2018-05-12] MEDS: VSL#3 PO SCH (08:31)
[2018-05-12] MEDS: ZOLOFT PO SCH (08:31)
[2018-05-12] MEDS: XIFAXAN PO SCH ×2 (08:31→21:25)
[2018-05-12] MEDS: VITAMIN C PO SCH ×2 (08:31→21:25)
[2018-05-12] MEDS: CYCLOSPORINE OP SCH (08:32)
[2018-05-12] MEDS: NORCO 5/325 MG TAB PO PRN (13:54)
[2018-05-12] MEDS: SNACK - Diabetic Appropriate PO SCH (21:24)
[2018-05-12] MEDS: RESTORIL CAP 30 MG PO PRN (21:25)
[2018-05-13 05:06] LABS: BASOPHILS % (AUTO) 0.5 % (0.2-1.0); EOSINOPHILS % (AUTO) 0.3 % (0.9-2.9); HEMATOCRIT 29.1 % (36.0-47.0); HEMOGLOBIN 10.2 g/dL (12.0-16.0); LYMPHOCYTES # (AUTO) 1.6 X10^3/uL (1.3-2.9); LYMPHOCYTES % (AUTO) 18.6 % (21.0-51.0); MEAN CORPUSCULAR HEMOGLOBIN 31.5 pg (27.0-34.0); MEAN CORPUSCULAR HGB CONC 34.9 g/dL (33.0-35.0); MEAN CORPUSCULAR VOLUME 90.4 fL (80.0-100.0); MEAN PLATELET VOLUME 7.9 fL (7.4-11.0); MONOCYTES # (AUTO) 0.4 x10^3/uL (0.3-0.8); MONOCYTES % (AUTO) 4.6 % (0.0-13.0); NEUTROPHILS # (AUTO) 6.4 x10^3/uL (2.2-4.8); PLATELET COUNT 31 X10^3/uL (150.0-450.0); RED BLOOD COUNT 3.22 X10^6/uL (3.5-5.4); WHITE BLOOD COUNT 8.4 X10^3/uL (3.6-10.0)
[2018-05-13 05:07] LABS: BLOOD UREA NITROGEN 10 mg/dL (7-18); CARBON DIOXIDE 25.5 mmol/L (21-32); CHLORIDE 107 mmol/L (98-107); COR NA(FOR HYPERGLY) 141 mmol/L (136-145); SODIUM 141 mmol/L (136-145); eGFR NON BLACK RACES > 60 (>60)
[2018-05-13] MEDS: WELCHOL PO SCH ×3 (05:34→21:35)
[2018-05-13 06:14] LABS: ANISOCYTOSIS 3+; PLATELET MORPHOLOGY COMMENT NORMAL (NORMAL)
[2018-05-13] MEDS ORDERED: ZOLOFT PO ONE (08:12)
[2018-05-13] MEDS: VITAMIN D3 PO SCH (08:28)
[2018-05-13] MEDS: NORCO 5/325 MG TAB PO PRN ×2 (08:28→20:33)
[2018-05-13] MEDS: PriLOSEC PO SCH (08:28)
[2018-05-13] MEDS: XIFAXAN PO SCH ×2 (08:29→21:36)
[2018-05-13] MEDS: VSL#3 PO SCH (08:29)
[2018-05-13] MEDS: ZOLOFT PO SCH (08:29)
[2018-05-13] MEDS: VITAMIN C PO SCH ×2 (08:29→21:36)
[2018-05-13] MEDS: CYCLOSPORINE OP SCH (08:30)
[2018-05-13] MEDS: RESTORIL CAP 30 MG PO PRN (20:34)
[2018-05-13] MEDS: SNACK - Diabetic Appropriate PO SCH (20:35)
[2018-05-14] MEDS: WELCHOL PO SCH ×3 (06:09→21:55)
[2018-05-14] MEDS ORDERED: ZOLOFT PO ONE (08:16)
[2018-05-14] MEDS: ZOLOFT PO SCH (08:50)
[2018-05-14] MEDS: XIFAXAN PO SCH ×2 (08:50→21:54)
[2018-05-14] MEDS: CYCLOSPORINE OP SCH (08:50)
[2018-05-14] MEDS: VSL#3 PO SCH (08:50)
[2018-05-14] MEDS: PriLOSEC PO SCH (08:50)
[2018-05-14] MEDS: VITAMIN C PO SCH ×2 (08:51→21:54)
[2018-05-14] MEDS: VITAMIN D3 PO SCH (08:51)
[2018-05-14] MEDS: FLONASE NASAL SPRAY ENOSTRIL SCH (12:57)
[2018-05-14] MEDS: NORCO 5/325 MG TAB PO PRN (12:58)
[2018-05-14] MEDS: DUONEB 0.5 MG/3 MG NEB PRN (20:35)
[2018-05-14] MEDS: SNACK - Diabetic Appropriate PO SCH (21:54)
[2018-05-14] MEDS: REMERON PO SCH (21:54)
[2018-05-14] MEDS: RESTORIL CAP 30 MG PO PRN (21:55)
[2018-05-15 05:15] LABS: BASOPHILS % (AUTO) 0.5 % (0.2-1.0); EOSINOPHILS % (AUTO) 0.2 % (0.9-2.9); HEMATOCRIT 27.4 % (36.0-47.0); HEMOGLOBIN 9.4 g/dL (12.0-16.0); LYMPHOCYTES # (AUTO) 1.7 X10^3/uL (1.3-2.9); LYMPHOCYTES % (AUTO) 20.5 % (21.0-51.0); MEAN CORPUSCULAR HGB CONC 34.5 g/dL (33.0-35.0); MEAN CORPUSCULAR VOLUME 89.9 fL (80.0-100.0); MEAN PLATELET VOLUME 8.3 fL (7.4-11.0); MONOCYTES # (AUTO) 0.4 x10^3/uL (0.3-0.8); MONOCYTES % (AUTO) 4.3 % (0.0-13.0); NEUTROPHILS % (AUTO) 74.5 % (42.0-75.0); PLATELET COUNT 46 X10^3/uL (150.0-450.0); RED BLOOD COUNT 3.05 X10^6/uL (3.5-5.4); WHITE BLOOD COUNT 8.1 X10^3/uL (3.6-10.0)
[2018-05-15 05:29] LABS: ANISOCYTOSIS 3+; PLATELET MORPHOLOGY COMMENT NORMAL (NORMAL)
[2018-05-15] MEDS: WELCHOL PO SCH ×3 (06:16→21:53)
[2018-05-15] MEDS ORDERED: ZOLOFT PO ONE (07:50)
[2018-05-15] MEDS: PriLOSEC PO SCH (08:00)
[2018-05-15] MEDS: NORCO 5/325 MG TAB PO PRN ×2 (08:00→21:53)
[2018-05-15] MEDS: VSL#3 PO SCH (08:00)
[2018-05-15] MEDS: VITAMIN D3 PO SCH (08:01)
[2018-05-15] MEDS: XIFAXAN PO SCH ×2 (08:01→21:53)
[2018-05-15] MEDS: FLONASE NASAL SPRAY ENOSTRIL SCH (08:01)
[2018-05-15] MEDS: VITAMIN C PO SCH ×2 (08:01→21:53)
[2018-05-15] MEDS: ZOLOFT PO SCH (08:01)
[2018-05-15] MEDS: CYCLOSPORINE OP SCH (08:03)
[2018-05-15] MEDS: SNACK - Diabetic Appropriate PO SCH (21:13)
[2018-05-15] MEDS: REMERON PO SCH (21:13)
[2018-05-15] MEDS: RESTORIL CAP 30 MG PO PRN (21:54)
[2018-05-16 05:05] LABS: BASOPHILS % (AUTO) 0.6 % (0.2-1.0); EOSINOPHILS % (AUTO) 0.5 % (0.9-2.9); HEMATOCRIT 28.5 % (36.0-47.0); HEMOGLOBIN 9.8 g/dL (12.0-16.0); LYMPHOCYTES # (AUTO) 1.8 X10^3/uL (1.3-2.9); LYMPHOCYTES % (AUTO) 27.6 % (21.0-51.0); MEAN CORPUSCULAR HEMOGLOBIN 30.9 pg (27.0-34.0); MEAN CORPUSCULAR HGB CONC 34.2 g/dL (33.0-35.0); MEAN CORPUSCULAR VOLUME 90.2 fL (80.0-100.0); MEAN PLATELET VOLUME 7.5 fL (7.4-11.0); MONOCYTES # (AUTO) 0.4 x10^3/uL (0.3-0.8); MONOCYTES % (AUTO) 6.2 % (0.0-13.0); NEUTROPHILS # (AUTO) 4.2 x10^3/uL (2.2-4.8); NEUTROPHILS % (AUTO) 65.1 % (42.0-75.0); PLATELET COUNT 52 X10^3/uL (150.0-450.0); RED BLOOD COUNT 3.16 X10^6/uL (3.5-5.4); RED CELL DISTRIBUTION WIDTH 27.8 % (11.6-16.5); WHITE BLOOD COUNT 6.5 X10^3/uL (3.6-10.0)
[2018-05-16 05:06] LABS: BLOOD UREA NITROGEN 10 mg/dL (7-18); CALCIUM 9.7 mg/dL (8.5-10.1); CHLORIDE 109 mmol/L (98-107); COR NA(FOR HYPERGLY) 145 mmol/L (136-145); CREATININE 1.02 mg/dL (0.55-1.02); SODIUM 145 mmol/L (136-145); eGFR NON BLACK RACES 56 (>60)
[2018-05-16 05:11] LABS: ANISOCYTOSIS 3+; PLATELET MORPHOLOGY COMMENT NORMAL (NORMAL)
[2018-05-16] MEDS: WELCHOL PO SCH ×3 (05:30→21:23)
[2018-05-16] MEDS ORDERED: ZOLOFT PO ONE (09:12)
[2018-05-16] MEDS: VSL#3 PO SCH (09:15)
[2018-05-16] MEDS: VITAMIN C PO SCH ×2 (09:16→20:29)
[2018-05-16] MEDS: PriLOSEC PO SCH (09:16)
[2018-05-16] MEDS: XIFAXAN PO SCH ×2 (09:16→20:28)
[2018-05-16] MEDS: VITAMIN D3 PO SCH (09:16)
[2018-05-16] MEDS: ZOLOFT PO SCH (09:16)
[2018-05-16] MEDS: FLONASE NASAL SPRAY ENOSTRIL SCH (09:17)
[2018-05-16] MEDS: CYCLOSPORINE OP SCH (09:17)
[2018-05-16] MEDS: REMERON PO SCH ×2 (09:55→20:28)
[2018-05-16] MEDS: NORCO 5/325 MG TAB PO PRN (10:49)
[2018-05-16] MEDS: SNACK - Diabetic Appropriate PO SCH (20:31)
[2018-05-17] MEDS: WELCHOL PO SCH ×3 (05:07→21:20)
[2018-05-17] MEDS: NORCO 5/325 MG TAB PO PRN (05:31)
[2018-05-17] MEDS ORDERED: ZOLOFT PO ONE (08:25)
[2018-05-17] MEDS: PriLOSEC PO SCH (08:58)
[2018-05-17] MEDS: ZOLOFT PO SCH (08:58)
[2018-05-17] MEDS: VITAMIN C PO SCH ×2 (08:58→20:23)
[2018-05-17] MEDS: VSL#3 PO SCH (08:58)
[2018-05-17] MEDS: VITAMIN D3 PO SCH (08:58)
[2018-05-17] MEDS: CYCLOSPORINE OP SCH (09:00)
[2018-05-17] MEDS: FLONASE NASAL SPRAY ENOSTRIL SCH (09:00)
[2018-05-17] MEDS: XIFAXAN PO SCH ×2 (09:08→20:23)
[2018-05-17] MEDS: MILK OF MAGNESIA PO SCH (13:35)
[2018-05-17] MEDS: ZOFRAN INJ 4 MG VIAL IVP PRN (18:03)
[2018-05-17] MEDS: REMERON PO SCH (20:23)
[2018-05-17] MEDS: SNACK - Diabetic Appropriate PO SCH (20:23)
[2018-05-17] MEDS: COLACE CAP 100 MG PO SCH (20:23)
[2018-05-17] MEDS: HumuLIN R SUBCUT PRN (20:24)
[2018-05-18] MEDS: WELCHOL PO SCH ×3 (05:19→22:02)
[2018-05-18] MEDS ORDERED: ZOLOFT PO ONE (07:54)
[2018-05-18] MEDS: VSL#3 PO SCH (08:14)
[2018-05-18] MEDS: ZOLOFT PO SCH (08:15)
[2018-05-18] MEDS: PriLOSEC PO SCH (08:15)
[2018-05-18] MEDS: MILK OF MAGNESIA PO SCH (08:15)
[2018-05-18] MEDS: VITAMIN D3 PO SCH (08:15)
[2018-05-18] MEDS: VITAMIN C PO SCH ×2 (08:15→20:25)
[2018-05-18] MEDS: XIFAXAN PO SCH ×2 (08:15→20:24)
[2018-05-18] MEDS: CYCLOSPORINE OP SCH (08:15)
[2018-05-18] MEDS: FLONASE NASAL SPRAY ENOSTRIL SCH (08:15)
[2018-05-18] MEDS ORDERED: XOPENEX 1.25 MG/3 ML NEBULE NEB ONE ×2 (11:57→11:59)
[2018-05-18] MEDS: HumuLIN R SUBCUT PRN ×2 (12:41→17:37)
[2018-05-18] MEDS: ZOFRAN INJ 4 MG VIAL IVP PRN (18:04)
[2018-05-18] MEDS: COLACE CAP 100 MG PO SCH (20:25)
[2018-05-18] MEDS: REMERON PO SCH (20:25)
[2018-05-18] MEDS: SNACK - Diabetic Appropriate PO SCH (20:29)
[2018-05-19] MEDS: WELCHOL PO SCH ×3 (05:59→21:00)
[2018-05-19] MEDS: HumuLIN R SUBCUT PRN ×2 (05:59→16:53)
[2018-05-19 06:16] LABS: BASOPHILS % (AUTO) 0.8 % (0.2-1.0); HEMATOCRIT 31.5 % (36.0-47.0); HEMOGLOBIN 10.6 g/dL (12.0-16.0); LYMPHOCYTES % (AUTO) 18.4 % (21.0-51.0); MEAN CORPUSCULAR HEMOGLOBIN 31.1 pg (27.0-34.0); MEAN CORPUSCULAR HGB CONC 33.5 g/dL (33.0-35.0); MEAN CORPUSCULAR VOLUME 92.8 fL (80.0-100.0); MEAN PLATELET VOLUME 7.6 fL (7.4-11.0); MONOCYTES # (AUTO) 0.4 x10^3/uL (0.3-0.8); MONOCYTES % (AUTO) 6.5 % (0.0-13.0); NEUTROPHILS # (AUTO) 4.1 x10^3/uL (2.2-4.8); NEUTROPHILS % (AUTO) 74.3 % (42.0-75.0); PLATELET COUNT 65 X10^3/uL (150.0-450.0); RED CELL DISTRIBUTION WIDTH 27.7 % (11.6-16.5); WHITE BLOOD COUNT 5.6 X10^3/uL (3.6-10.0)
[2018-05-19 06:23] LABS: CALCIUM 10.2 mg/dL (8.5-10.1); CARBON DIOXIDE 27.9 mmol/L (21-32); CREATININE 1.25 mg/dL (0.55-1.02)
[2018-05-19 06:28] LABS: ANISOCYTOSIS 3+; PLATELET MORPHOLOGY COMMENT NORMAL (NORMAL)
[2018-05-19] MEDS ORDERED: ZOLOFT PO ONE (07:46)
[2018-05-19] MEDS: FLONASE NASAL SPRAY ENOSTRIL SCH (08:12)
[2018-05-19] MEDS: ZOLOFT PO SCH (08:13)
[2018-05-19] MEDS: MILK OF MAGNESIA PO SCH (08:13)
[2018-05-19] MEDS: VITAMIN D3 PO SCH (08:13)
[2018-05-19] MEDS: XIFAXAN PO SCH (08:13)
[2018-05-19] MEDS: VITAMIN C PO SCH ×2 (08:13→20:44)
[2018-05-19] MEDS: VSL#3 PO SCH (08:13)
[2018-05-19] MEDS: PriLOSEC PO SCH (08:13)
[2018-05-19] MEDS: CYCLOSPORINE OP SCH (08:14)
[2018-05-19] MEDS: DUONEB 0.5 MG/3 MG NEB PRN ×2 (08:57→21:10)
[2018-05-19] MEDS: SNACK - Diabetic Appropriate PO SCH (20:44)
[2018-05-19] MEDS: COLACE CAP 100 MG PO SCH (20:44)
[2018-05-19] MEDS: REMERON PO SCH (20:45)
[2018-05-20] MEDS: WELCHOL PO SCH ×3 (06:21→21:39)
[2018-05-20] MEDS: HumuLIN R SUBCUT PRN ×3 (06:21→17:24)
[2018-05-20] MEDS ORDERED: ZOLOFT PO ONE (07:22)
[2018-05-20] MEDS: ZOLOFT PO SCH (08:06)
[2018-05-20] MEDS: VITAMIN C PO SCH ×2 (08:06→20:40)
[2018-05-20] MEDS: VITAMIN D3 PO SCH (08:06)
[2018-05-20] MEDS: PriLOSEC PO SCH (08:06)
[2018-05-20] MEDS: VSL#3 PO SCH (08:06)
[2018-05-20] MEDS: MILK OF MAGNESIA PO SCH (08:06)
[2018-05-20] MEDS: CYCLOSPORINE OP SCH (08:07)
[2018-05-20] MEDS: FLONASE NASAL SPRAY ENOSTRIL SCH (08:07)
[2018-05-20] MEDS: ZOFRAN INJ 4 MG VIAL IVP PRN (08:18)
[2018-05-20] MEDS: DUONEB 0.5 MG/3 MG NEB PRN ×2 (09:40→12:50)
[2018-05-20] MEDS: BUTT CREAM (COMPOUND) TOP PRN (10:07)
--- NOTE | 2018-05-20 10:19 | RAD ---
History: Dyspnea Study: Portable AP chest Comparison: May 04 Findings: There is a marked change. There is opacification of the left thorax with shift of the media stinum from right to left. The right lung is clear. No significant bony abnormality is suggested. Impression: Atelectasis of the left lung with shift of the mediastinum from right to left Reported By:
[2018-05-20 10:51] LABS: BILIRUBIN,URINE NEGATIVE (NEGATIVE); BLOOD/HEMOGLOBIN,URINE NEGATIVE (NEGATIVE); GLUCOSE, URINE NEGATIVE (NEGATIVE); KETONES,URINE NEGATIVE (NEGATIVE); LEUKOCYTE ESTERASE ,URINE NEGATIVE (NEGATIVE); NITRITES,URINE NEGATIVE (NEGATIVE); PROTEIN,URINE 2+ (NEGATIVE); UROBILINOGEN,URINE NORMAL (NORMAL)
[2018-05-20 10:58] LABS: AMORPHOUS SEDIMENT,UR 1+ /HPF (NEGATIVE); APPEARANCE,URINE CLEAR (CLEAR); BACTERIA,URINE TRACE /HPF (NEGATIVE); COLOR,URINE YELLOW (YELLOW); RBC,URINE 0-2 /HPF (NONE SEEN); SQUAMOUS EPITHELIAL CELL,UR RARE /HPF (NEGATIVE)
--- NOTE | 2018-05-20 15:04 | CT ---
CT CHEST WITH IV CONTRAST HISTORY: Left lung atelectasis Comparison: None Technique: Multiple axial images of the chest were obtained from the thoracic inlet to the upper abdo men after the administration of IV contrast.Dose reduction techniques including Automated Exposure Co ntrol (AEC) and adjustment of mA and kV were utlized. Findings: The heart is normal in size. No pericardial effusion. No suspicious mediastinal or axillary lymph no jonathan. Although not optimized to detect pulmonary embolism, no large central pulmonary emboli are seen. There is essentially complete atelectasis of the left lung secondary to endobronchial obstruction by low-attenuation lesion best seen on series 4, image 23. This is most consistent with a mucous pluggin g. Small right pleural effusion. No suspicious pulmonary nodules or masses. Limited images of the upper abdomen are unremarkable. No aggressive osseous lesions. IMPRESSION: 1. Large left main mucous plug with subsequent near complete atelectasis of the entirety of the left lung and mediastinal shift to the left. Recommend bronchoscopy with an immediacy determined by patie nt's symptoms. Reported By:
[2018-05-20] MEDS: DUONEB 0.5 MG/3 MG NEB SCH ×2 (16:37→20:40)
[2018-05-20] MEDS: MUCOMYST 20% 200 MG/ML NEB SCH ×2 (16:37→20:40)
[2018-05-20] MEDS: COLACE CAP 100 MG PO SCH (20:40)
[2018-05-20] MEDS: REMERON PO SCH (20:40)
[2018-05-20] MEDS: SNACK - Diabetic Appropriate PO SCH (20:41)
[2018-05-21] MEDS: DUONEB 0.5 MG/3 MG NEB SCH ×4 (01:15→16:45)
[2018-05-21] MEDS: MUCOMYST 20% 200 MG/ML NEB SCH ×6 (01:15→20:32)
[2018-05-21] MEDS: BUTT CREAM (COMPOUND) TOP PRN (01:32)
[2018-05-21] MEDS: NORCO 5/325 MG TAB PO PRN ×3 (01:32→20:35)
[2018-05-21 05:23] LABS: BASOPHILS % (AUTO) 0.3 % (0.2-1.0); EOSINOPHILS % (AUTO) 0.1 % (0.9-2.9); HEMATOCRIT 27.7 % (36.0-47.0); HEMOGLOBIN 9.4 g/dL (12.0-16.0); LYMPHOCYTES # (AUTO) 1.2 X10^3/uL (1.3-2.9); LYMPHOCYTES % (AUTO) 16.1 % (21.0-51.0); MEAN CORPUSCULAR HEMOGLOBIN 31.4 pg (27.0-34.0); MEAN CORPUSCULAR VOLUME 92.4 fL (80.0-100.0); MEAN PLATELET VOLUME 7.8 fL (7.4-11.0); MONOCYTES # (AUTO) 0.7 x10^3/uL (0.3-0.8); MONOCYTES % (AUTO) 9.8 % (0.0-13.0); NEUTROPHILS # (AUTO) 5.5 x10^3/uL (2.2-4.8); NEUTROPHILS % (AUTO) 73.7 % (42.0-75.0); PLATELET COUNT 64 X10^3/uL (150.0-450.0); RED CELL DISTRIBUTION WIDTH 27.5 % (11.6-16.5); WHITE BLOOD COUNT 7.5 X10^3/uL (3.6-10.0)
[2018-05-21 05:34] LABS: ANISOCYTOSIS 3+; PLATELET MORPHOLOGY COMMENT NORMAL (NORMAL)
[2018-05-21 05:35] LABS: ALBUMIN 2.7 g/dL (3.4-5.0); CALCIUM 9.4 mg/dL (8.5-10.1); CARBON DIOXIDE 27.2 mmol/L (21-32); COR CA(FOR HYPOALB) 10.4 mg/dL (8.5-10.1); CREATININE 1.17 mg/dL (0.55-1.02); TOTAL PROTEIN 6.2 g/dL (6.4-8.2)
[2018-05-21] MEDS: WELCHOL PO SCH ×3 (05:53→21:20)
[2018-05-21] MEDS ORDERED: ZOLOFT PO ONE (07:49)
--- NOTE | 2018-05-21 07:53 | RAD ---
History: Pneumonia Study: AP chest Comparison: Yesterday Findings there is persistent atelectasis of the left lung with shift of the mediastinum from right to left. The right lung is hyperinflated and grossly clear. Impression: Unchanged atelectasis of the left lung with obstruction of the distal left mainstem bronc hus Reported By:
[2018-05-21] MEDS: VITAMIN D3 PO SCH (08:00)
[2018-05-21] MEDS: MILK OF MAGNESIA PO SCH (08:00)
[2018-05-21] MEDS: PriLOSEC PO SCH (08:00)
[2018-05-21] MEDS: VSL#3 PO SCH (08:00)
[2018-05-21] MEDS: ZOLOFT PO SCH (08:00)
[2018-05-21] MEDS: FLONASE NASAL SPRAY ENOSTRIL SCH (08:01)
[2018-05-21] MEDS: CYCLOSPORINE OP SCH (08:01)
[2018-05-21] MEDS: VITAMIN C PO SCH ×2 (08:03→20:34)
--- NOTE | 2018-05-21 11:07 | RAD ---
History: Shortness of breath and abnormal chest x-ray Study: AP chest Comparison: Today at 6:20 a.m. Findings: There is marked improvement with new aeration of the left upper lobe. There is blunting of the left costophrenic angle with persistent left retrocardiac density which also obscures the left he midiaphragm. The right lung is clear. There is no significant right to left midline shift of the medi astinum and heart. Impression: Resolving atelectasis of the left lung with new aeration of the left upper lobe. There is persistent consolidation or atelectasis in the left lower lobe with a small left pleural effusion. Reported By:
[2018-05-21] MEDS: XOPENEX 1.25 MG/3 ML NEBULE NEB SCH ×3 (13:20→20:32)
[2018-05-21] MEDS ORDERED: DUONEB 0.5 MG/3 MG ONE (16:58)
[2018-05-21] MEDS: HumuLIN R SUBCUT PRN (17:33)
[2018-05-21] MEDS: SNACK - Diabetic Appropriate PO SCH (20:08)
[2018-05-21] MEDS: COLACE CAP 100 MG PO SCH (20:33)
[2018-05-21] MEDS: REMERON PO SCH (20:34)
[2018-05-22] MEDS: MUCOMYST 20% 200 MG/ML NEB SCH ×6 (01:17→21:22)
[2018-05-22] MEDS: XOPENEX 1.25 MG/3 ML NEBULE NEB SCH ×6 (01:17→21:22)
[2018-05-22] MEDS: WELCHOL PO SCH ×2 (05:30→13:17)
[2018-05-22] MEDS ORDERED: ZOLOFT PO ONE (07:38)
[2018-05-22] MEDS: VSL#3 PO SCH (08:07)
[2018-05-22] MEDS: MILK OF MAGNESIA PO SCH (08:07)
[2018-05-22] MEDS: ULTRAM PO PRN (08:08)
[2018-05-22] MEDS: VITAMIN D3 PO SCH (08:08)
[2018-05-22] MEDS: ZOLOFT PO SCH (08:08)
[2018-05-22] MEDS: VITAMIN C PO SCH ×2 (08:08→20:13)
[2018-05-22] MEDS: PriLOSEC PO SCH (08:08)
[2018-05-22] MEDS: CYCLOSPORINE OP SCH (08:08)
[2018-05-22] MEDS: FLONASE NASAL SPRAY ENOSTRIL SCH (08:09)
--- NOTE | 2018-05-22 13:31 | RAD ---
History: Follow-up of mucous plug and left lung atelectasis Study: Portable AP chest Comparison: Yesterday Findings: The tibia and marked improvement is demonstrated with re-expansion of the left lung with mi nimal airspace disease in the left lower lobe. The right lung is clear. There is minimal blunting of the left costophrenic angle. There is no pneumothorax. Impression: Continued improvement in the left lung with re-expansion and resolving airspace disease w ith a probable minimal residual left pleural effusion Reported By:
[2018-05-22] MEDS: SNACK - Diabetic Appropriate PO SCH (20:00)
[2018-05-22] MEDS: REMERON PO SCH (20:08)
[2018-05-22] MEDS: COLACE CAP 100 MG PO SCH (20:09)
[2018-05-23] MEDS: WELCHOL PO SCH ×3 (00:51→13:53)
[2018-05-23] MEDS: ULTRAM PO PRN (07:10)
[2018-05-23] MEDS: NORCO 5/325 MG TAB PO PRN (08:38)
[2018-05-23] MEDS: XOPENEX 1.25 MG/3 ML NEBULE NEB SCH ×2 (08:51→11:59)
[2018-05-23] MEDS: MUCOMYST 20% 200 MG/ML NEB SCH ×2 (08:51→11:59)
[2018-05-23] MEDS ORDERED: ZOLOFT PO ONE (09:57)
[2018-05-23] MEDS: FLONASE NASAL SPRAY ENOSTRIL SCH (10:05)
[2018-05-23] MEDS: VSL#3 PO SCH (10:06)
[2018-05-23] MEDS: VITAMIN C PO SCH (10:06)
[2018-05-23] MEDS: VITAMIN D3 PO SCH (10:06)
[2018-05-23] MEDS: ZOLOFT PO SCH (10:06)
[2018-05-23] MEDS: PriLOSEC PO SCH (10:07)
[2018-05-23] MEDS: CYCLOSPORINE OP SCH (10:08)
[2018-05-23] MEDS: MILK OF MAGNESIA PO SCH (10:08)
[2018-05-23 11:48] VITALS: BP 114/54
== END 2018-05-23 14:10 | disposition hospice, home (50) | DRG 949 ==
LOC: MED/SURG 13:00
PROVIDERS: ADMIT Obstetrics & Gynecology Obstetrics; ATTEND Obstetrics & Gynecology Obstetrics
DX: K76.89 Other specified diseases of liver; R26.89 Other abnormalities of gait and mobility; M13.89 Other specified arthritis, multiple sites; J18.8 Other pneumonia, unspecified organism; R10.11 Right upper quadrant pain; R19.7 Diarrhea, unspecified; Z51.89 Encounter for other specified aftercare; C78.7 Secondary malignant neoplasm of liver and intrahepatic bile duct; R11.2 Nausea with vomiting, unspecified; R13.12 Dysphagia, oropharyngeal phase; E11.65 Type 2 diabetes mellitus with hyperglycemia
CPT/HCPCS: 36415; 71010; 71045; 71260; 80048; 80053; 81001; 85025; 94640; 94667; 94669; 94760; 97110; 97112; 97116; 97162; 97166; 97530; 97535; A4222; J1642; J1815; J2405; J7608; J7620; J8499